=== PATIENT | male | born 1955 | race Caucasian/White ===

== ENCOUNTER 2016-10-05 12:56 | Emergency (ER) | payer OTHER ==
[~2016-10-05] VITALS: Ht 175.3 cm; Wt 98.9 kg
[2016-10-05] MEDS ORDERED: ONDANSETRON PF 4 MG/2 ML VIAL. IV ONE (13:30)
[2016-10-05] MEDS: HYDROmorphone 2 MG/ML VIAL IV PRN ×2 (14:06→15:50)
[2016-10-05 14:18] LABS: BASO # 0.1 x10^3/uL (0.0-0.2); BASO % 1 % (0-3); EOS % 2 % (0-3); HEMATOCRIT 40.9 % (39.0-53.0); HEMOGLOBIN 13.5 g/dL (13.0-17.5); LYMPH # 2.6 x10^3/uL (1.0-4.8); LYMPH % 25 % (24-48); MEAN CORPUSCULAR HEMOGLOBIN 30 pg (25-35); MEAN CORPUSCULAR HGB CONC 33 g/dL (31-37); MEAN CORPUSCULAR VOLUME 91 fL (79-100); MONO % 6 % (0-9); NEUT % 65 % (31-73); PLATELET COUNT 268 x10^3/uL (140-400); RED BLOOD COUNT 4.52 x10^6/uL (4.30-5.70); WHITE BLOOD COUNT 10.5 x10^3/uL (4.0-11.0)
[2016-10-05 14:28] LABS: CALCIUM 9.1 mg/dL (8.5-10.1); CREATININE 1.5 mg/dL (0.7-1.3); GFR 47.6; POTASSIUM 4.7 mmol/L (3.5-5.1)
--- NOTE | 2016-10-05 14:28 | RAD ---
Indication chest pain. A single view of the chest was obtained. No prior imaging of the chest is available. Heart size is at the upper limits of normal. There is no congestive heart failure. There is no focal infiltrate significant pleural fluid collection or pneumothorax. Postoperative changes are noted in the cervical spine. IMPRESSION: No acute finding apparent in the chest
--- NOTE | 2016-10-05 14:31 | RAD ---
Indication right ankle pain. AP oblique and lateral views of the right ankle were obtained. A plate and screws are noted associated with the lateral malleolus. There is a sclerotic focus involving the distal tibia at the articular surface the etiology is unclear. This is probably on a degenerative basis however. IMPRESSION: No acute finding. Probable early degenerative change involving the distal tibia
[2016-10-05 14:37] LABS: ALBUMIN 3.4 g/dL (3.4-5.0); MAGNESIUM 2.3 mg/dL (1.8-2.4); TOTAL BILIRUBIN 0.3 mg/dL (0.2-1.0); TOTAL PROTEIN 6.8 g/dL (6.4-8.2)
--- NOTE | 2016-10-05 14:59 | EKG ---
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
--- NOTE | 2016-10-05 15:04 | RAD ---
Indication pain associated with a fall. AP oblique and lateral views of the right knee were obtained. No acute bony finding is seen. Significant degenerative changes are not apparent on plain films. No significant joint fluid is suggested. IMPRESSION: Normal plain films of the right knee
[2016-10-05 15:14] VITALS: BP 85/64
[2016-10-05] MEDS ORDERED: HYDR-2758 PO (15:32)
--- NOTE | 2016-10-05 15:33 | PHYS DOC ---
Past Medical History Past Medical History: Anxiety, Diabetes-Type II, GERD, High Cholesterol, Hypertension Additional Past Medical Histor: Chronic neck pain, Neuropathy, Essential Tremors, Insomnia Past Surgical History: Other Additional Past Surgical Histo: Neck Fusion, Ankle Surgery Alcohol Use: Occasionally Drug Use: Marijuana Adult General Chief Complaint Chief Complaint: SYNCOPE HPI HPI 61-year-old male presenting to the emergency department after sustaining injury to his right ankle after passing out approximately 2 hours ago. 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 He reports his pain is in his right ankle sharp moderate worse with walking and without alleviating factors. He notes associated swelling. He denies any palpitations or preceding symptoms. Review of systems is negative for chest pain shortness of breath headache fevers chills cough. He denies palpitations. All other review of systems is negative unless otherwise noted in history of present illness. ED course: 61-year-old gentleman presenting to the emergency department today with syncope and right ankle injury. He reports his syncope is currently being worked up on an outpatient basis by his primary care physician and reports "mainly being seen today for his right ankle pain." He is concerned he has a fracture. X-ray of the right ankle was obtained which was unremarkable read by radiology. Right knee x-ray obtained as well which was unremarkable.EKG shows sinus rhythm with regular rate. Normal intervals. Normal axis. ST segments are congruent. Not suggestive of ACS. Reviewed by myself. Blood work taken and reviewed by myself. Creatinine and BUN mildly elevated. Patient is on hydrochlorothiazide. Patient also was found to be mildly orthostatic in the emergency department. I recommended he stop taking his hydrochlorothiazide and follow up with his doctor in the next few days. Also I recommended he drink a lot of water to rehydrate himself. His who is here with him today reports that he had a recent creatinine was mildly elevated as well. The patient was then discharged home in stable condition to follow up with their primary care physician over the next 2-3 days. They were to return if their symptoms worsened or if they were concerned for any reason. [id number] discharge instructions and return precautions were given. Patient's questions were answered to their satisfaction. Patient is comfortable plan. Review of Systems Review of Systems SEE ABOVE. Current Medications Current Medications Current Medications Medications (Trade) Dose Ordered Sig/Adilson Start Time Stop Time Status Last Admin Dose Admin Hydromorphone HCl (Dilaudid) 0.5 mg PRN Q30MIN PRN 10/05/16 13:30 10/05/16 16:05 DC 10/05/16 15:50 0.5 MG Ondansetron HCl (Zofran) 4 mg 1X ONCE 10/05/16 13:30 10/05/16 13:32 DC 10/05/16 14:03 4 MG Allergies Allergies Allergies Coded Allergies Type Severity Reaction Last Updated Verified niacin Allergy Intermediate 12/08/14 No nicotine Allergy Intermediate 12/08/14 No pravastatin Allergy Intermediate 12/08/14 No varenicline Allergy Intermediate 12/08/14 No hydrocodone Adverse Reaction Intermediate NAUSEA 12/08/14 No Physical Exam Physical Exam SEE ABOVE Constitutional: Well developed, well nourished, no acute distress, non-toxic appearance. [] HENT: Normocephalic, atraumatic, bilateral external ears normal, oropharynx moist, no oral exudates, nose normal. [] Eyes: PERRLA, EOMI, conjunctiva normal, no discharge. [] Neck: Normal range of motion, no tenderness, supple, no stridor. [] Cardiovascular:Heart rate regular rhythm, no murmur [] Lungs & Thorax: Bilateral breath sounds clear to auscultation [] Abdomen: Bowel sounds normal, soft, no tenderness, no masses, no pulsatile masses. [] Skin: Warm, dry, no erythema, no rash. [] Back: No tenderness, no CVA tenderness. [] Extremities: The patient's right ankle is warm and well perfused with a palpable pulse. No erythema. No lacerations abrasions. Mild swelling present. Tenderness to palpation along the right lateral malleolus. Sensation intact. 2 second cap refill distally. Neurologic: Alert and oriented X 3, normal motor function, normal sensory function, no focal deficits noted. [] Psychologic: Affect normal, judgement normal, mood normal. [] Current Patient Data Vital Signs Vital Signs Date Time Temp Pulse Resp B/P (MAP) Pulse Ox O2 Delivery O2 Flow Rate FiO2 10/05/16 15:50 Room Air 10/05/16 15:14 92 22 85/64 (71) 92 10/05/16 13:25 98.4 98.4 Lab Values Laboratory Tests Test 10/05/16 14:00 White Blood Count 10.5 x10^3/uL (4.0-11.0) Red Blood Count 4.52 x10^6/uL (4.30-5.70) Hemoglobin 13.5 g/dL (13.0-17.5) Hematocrit 40.9 % (39.0-53.0) Mean Corpuscular Volume 91 fL (79-100) Mean Corpuscular Hemoglobin 30 pg (25-35) Mean Corpuscular Hemoglobin Concent 33 g/dL (31-37) Red Cell Distribution Width 13.0 % (11.5-14.5) Platelet Count 268 x10^3/uL (140-400) Neutrophils (%) (Auto) 65 % (31-73) Lymphocytes (%) (Auto) 25 % (24-48) Monocytes (%) (Auto) 6 % (0-9) Eosinophils (%) (Auto) 2 % (0-3) Basophils (%) (Auto) 1 % (0-3) Neutrophils # (Auto) 6.9 x10^3uL (1.8-7.7) Lymphocytes # (Auto) 2.6 x10^3/uL (1.0-4.8) Monocytes # (Auto) 0.7 x10^3/uL (0.0-1.1) Eosinophils # (Auto) 0.2 x10^3/uL (0.0-0.7) Basophils # (Auto) 0.1 x10^3/uL (0.0-0.2) Sodium Level 136 mmol/L (136-145) Potassium Level 4.7 mmol/L (3.5-5.1) Chloride Level 99 mmol/L (98-107) Carbon Dioxide Level 29 mmol/L (21-32) Anion Gap 8 (6-14) Blood Urea Nitrogen 28 mg/dL (8-26) H Creatinine 1.5 mg/dL (0.7-1.3) H Estimated GFR (Cockcroft-Gault) 47.6 BUN/Creatinine Ratio 19 (6-20) Glucose Level 118 mg/dL (70-99) H Calcium Level 9.1 mg/dL (8.5-10.1) Magnesium Level 2.3 mg/dL (1.8-2.4) Total Bilirubin 0.3 mg/dL (0.2-1.0) Aspartate Amino Transferase (AST) 13 U/L (15-37) L Alanine Aminotransferase (ALT) 19 U/L (16-63) Alkaline Phosphatase 71 U/L (46-116) Troponin I Quantitative < 0.017 ng/mL (0.000-0.055) Total Protein 6.8 g/dL (6.4-8.2) Albumin 3.4 g/dL (3.4-5.0) Albumin/Globulin Ratio 1.0 (1.0-1.7) Laboratory Tests 10/05/16 14:00 Laboratory Tests 10/05/16 14:00 EKG EKG [] Radiology/Procedures Radiology/Procedures [] Course & Med Decision Making Course & Med Decision Making Pertinent Labs and Imaging studies reviewed. (See chart for details) [] Dragon Disclaimer Dragon Disclaimer This electronic medical record was generated, in whole or in part, using a voice recognition dictation system. Departure Departure Impression: Primary Impression: Right ankle pain Additional Impression: Syncope Disposition: 01 HOME, SELF-CARE Condition: STABLE Referrals: CELSO LEVIN (PCP) Patient Instructions: Ankle Pain Additional Instructions: Thank you for allowing us to participate in your care today. Followup with your primary care physician in 3 days if your symptoms do not improve. Call your Primary Doctor tomorrow and inform them of your visit today. If you do not have a primary care provider you can ask for a list of our primary care providers. Return to the emergency department you have any new or concerning findings. This should be evaluated by the primary care physician and any necessary consulting services for continued management within a few days after discharge. Return to emergency room if you have any new or concerning symptoms including but not limited to fever, chills, nausea, vomiting, intractable pain, any new rashes, chest pain, shortness of air, uncontrolled bleeding, difficulty breathing, and/or vision loss. You may have been prescribed medication that can change in your level of thinking and ability to operate machinery. These medications include hydrocodone and Ativan. Also, Benadryl has been known to do this as well. Be sure to check with your pharmacist and ask if the medications you've prescribed can affect your level of consciousness. I recommend not operating heavy machinery or driving while on medication such as these. Scripts Morphine Sulfate (MORPHINE SULFATE) 15 Mg Tablet 1 TAB PO PRN Q6-8HRS Y for SEVERE PAIN, #8 TAB Prov: KASANDRA BISHOP MD 10/05/16 Problem Qualifiers KASANDRA BISHOP MD Oct 05, 2016 15:32
[2016-10-05] MEDS ORDERED: MORP15TA PO (15:56)
== END 2016-10-05 15:58 | disposition home or self-care (01) ==
LOC: ER 12:56
DX: M25.571 Pain in right ankle and joints of right foot (principal); R55 Syncope and collapse; E11.9 Type 2 diabetes mellitus without complications; K21.9 Gastro-esophageal reflux disease without esophagitis; I10 Essential (primary) hypertension; E78.00 Pure hypercholesterolemia, unspecified; M54.2 Cervicalgia; G89.29 Other chronic pain; Z88.8 Allergy status to other drugs, medicaments and biological substances; Z88.6 Allergy status to analgesic agent; X58.XXXA Exposure to other specified factors, initial encounter; Y93.89 Activity, other specified; Y92.89 Other specified places as the place of occurrence of the external cause; Y99.8 Other external cause status
CPT/HCPCS: 36415; 71010; 73562; 73610; 80053; 83735; 84484; 85027; 93005; 96374; 96375; 96376; 99285; J1170; J2405

== ENCOUNTER → 2016-10-09 | Outpatient (CLI) | payer OTHER ==
[2016-10-05 15:14] VITALS: BP 85/64
[~2016-10-09] MED LIST: HYDR-2758 PO; MORP15TA PO
--- NOTE | 2016-10-09 15:50 | RAD ---
EXAM: PET/CT SKULL BASE TO MID THIGH. HISTORY: 61-year-old with right lung carcinoma. Not currently receiving chemoradiation. COMPARISON: None. TECHNIQUE: CT was performed from the skull base through the mid thighs for the purposes of attenuation correction. 15.2 mCi F-18 fluorodeoxyglucose (FDG) was administered intravenously. After an uptake period, positron emission tomography was performed from the skull base through the mid thighs. The PET and CT data were fused and interpreted in combination a dedicated workstation. Blood glucose level was 162 mg/dL at the time of FDG administration. Findings: Mediastinal blood pool: 3.7 SUV. Head and neck: No suspicious hypermetabolic activity in this region. Chest: There is a medial right upper lobe nodule measuring 2.2 x 2.1 cm which demonstrates a maximum SUV of 2.7. No hypermetabolic lymphadenopathy. Abdomen and pelvis: There is physiologic activity in both kidneys with excretion into the renal collecting system. There is patchy scattered FDG uptake throughout the small large bowel which is likely physiologic. No suspicious focal FDG uptake or hypermetabolic lymphadenopathy in this region. Musculoskeletal: Prior ACDF C4-C7. No no suspicious focal uptake. Uncorrected PET images: No additional finding. Low-dose noncontrast CT: Coronary artery calcifications. Mild dilatation of the ascending thoracic aorta measuring 4.2 cm. There are scattered bilateral nonobstructive renal calculi, largest in the superior pole the left kidney measuring 8 mm. There is a 1.6 cm peripherally calcified nodule in the dependent peritoneum which likely represents fat necrosis from prior epiploic appendagitis. Abdominal aorta is normal in caliber with moderate aortoiliac calcified atheromatous disease. Impression: 1. Right upper lobe pulmonary nodule, measuring up to 2.2 cm, with minimal FDG uptake which is below the mediastinal blood pool. Findings may represent benign noncalcified nodule, FDG poor low-grade pulmonary malignancy or metastatic disease from an unknown primary. 2. Otherwise, no hypermetabolic mass or lymphadenopathy in the neck, chest, abdomen or pelvis. 3. Coronary artery calcifications and mild dilatation of the ascending thoracic aorta.
== END | disposition home or self-care (01) ==
LOC: PETSC 08:12
PROVIDERS: ATTEND Internal Medicine Pulmonary Disease
DX: R91.8 Other nonspecific abnormal finding of lung field (principal); I25.10 Atherosclerotic heart disease of native coronary artery without angina pectoris; R91.1 Solitary pulmonary nodule; I71.2 Thoracic aortic aneurysm, without rupture
CPT/HCPCS: 78815; A9552

== ENCOUNTER → 2016-10-16 | Outpatient (CLI) | payer OTHER ==
[2016-10-05 15:14] VITALS: BP 85/64
--- NOTE | 2016-10-16 12:01 | KCIC ---
PQRS Compliance Statement: One or more of the following individualized dose reduction techniques were utilized for this examination: 1. Automated exposure control 2. Adjustment of the mA and/or kV according to patient size 3. Use of iterative reconstruction technique CT LOWER EXTREMITY WO RIGHT Clinical Indication: Closed fracture posterior right malleolus. Previous fracture with surgery 9 years ago. Comparison: Right ankle, 3 views, prior day, [facility]. TECHNIQUE: Helical CT imaging of the right ankle is performed without IV contrast, multiplanar reformats. Findings: There is a lateral sideplate secured with cortical screws of the distal fibula. There is an orthogonal oblique cortical screw of the distal fibula. No hardware fracture or evidence of loosening is identified. There is acute traumatic nondisplaced fracture of the posterior malleolus. There is acute traumatic nondisplaced fracture at the anterior tip of the lateral malleolus, for example axial image 50 and sagittal image 32. The fracture line is separate from the hardware. The talus is intact. The medial malleolus is intact. No obvious soft tissue abnormality. IMPRESSION: 1. Acute traumatic nondisplaced fracture of the posterior malleolus. 2. Acute traumatic nondisplaced fracture of the anterior tip of the lateral malleolus. Electronically signed by: Darci Angeles MD (10/16/2016 11:57 AM) [id number]
== END | disposition home or self-care (01) ==
LOC: KCIC CT 10:43
PROVIDERS: ATTEND Nurse Practitioner Gerontology
DX: S82.64XA Nondisplaced fracture of lateral malleolus of right fibula, initial encounter for closed fracture (principal); X58.XXXA Exposure to other specified factors, initial encounter; Y93.89 Activity, other specified; Y92.89 Other specified places as the place of occurrence of the external cause; Y99.8 Other external cause status
CPT/HCPCS: 73700

== ENCOUNTER → 2016-12-11 | Outpatient (CLI) | payer OTHER ==
[~2016-12-11] MED LIST changes: +IOHEXOL 300 MG/ML 75 ML VIAL IV ONE
--- NOTE | 2016-12-11 13:49 | RAD ---
EXAM: CT OF THE CHEST WITH INTRAVENOUS CONTRAST. HISTORY: Lymphadenopathy. TECHNIQUE: Computed tomography of the chest was performed after the intravenous administration of 75 mL Omnipaque 300. COMPARISON: 10/09/2016. FINDINGS: Images of the upper abdomen reveal no acute abnormality. Bone windows reveal no suspicious lesions. There is a 2.3 cm round mass along the right paratracheal territory. This appears increased from 2.1 cm on 10/09/2016. Calcified mediastinal lymph nodes are likely secondary to old granulomatous disease. There is no pleural or pericardial effusion. The heart is not enlarged. The ascending aorta is mildly ectatic at 4.4 cm. There are atherosclerotic calcifications of the coronary arteries. Scattered tiny nodules on the left are unchanged and appear postinflammatory at <4 mm. A groundglass nodule in the right upper lobe measures 1 cm and is less prominent than on the prior study. IMPRESSION: 1. A 2.3 cm the right peritracheal lymph node has increased in size slightly since 10/09/2016. This is indeterminate and malignancy is not excluded. Tissue sampling could provide definitive diagnosis if not all and known. 2. Mild ascending aortic ectasia at 4.4 cm. *One or more of the following individualized dose reduction techniques were utilized for this examination: 1. Automated exposure control. 2. Adjustment of the mA and/or kV according to patient size. 3. Use of iterative reconstruction technique.
== END | disposition home or self-care (01) ==
LOC: CT 14:34
PROVIDERS: ATTEND Internal Medicine Pulmonary Disease
DX: I77.819 Aortic ectasia, unspecified site (principal); I10 Essential (primary) hypertension; E11.9 Type 2 diabetes mellitus without complications; R59.1 Generalized enlarged lymph nodes
CPT/HCPCS: 36415; 71260; 82565; 84520; Q9967

== ENCOUNTER 2016-12-31 10:05 | Day surgery (SDC) | payer OTHER ==
[~2016-12-31] VITALS: Ht 175.3 cm; Wt 104.3 kg
[~2016-12-31 10:05] MED LIST changes: +ALBU2.5V5 NEB; +ASPI-482 PO; +BUPIVACAINE MPF 0.5% 30 ML VIAL. ONE; +BUPR150T11 PO; +CARV25TA2 PO; +CHOL100013 PO; +DEXAMETHASONE SOD PHOS 20 MG/5 ML VIAL. ONE; +DULO60CA6 PO; +GLIP10TA13 PO; +GLIP5TAB10 PO; +HYDR50TA6 PO; -IOHEXOL 300 MG/ML 75 ML VIAL IV ONE; +IV RINGERS,LACTATED 1000ML 1,000 ML IV SCH; +LIDOCAINE 1% PF 2 ML VIAL. ID PRN; +LIDOCAINE 1% PF 30 ML VIAL. ONE; +LIDOCAINE 2% PF Vial for OR 5 ML VIAL. ONE; +LOVA20TA2 PO; +METF100010 PO; +MORPHINE SULFATE 2 MG/ML DISP.SYRIN. IV PRN; +OMEG1CAP6 PO; +ONDANSETRON PF 4 MG/2 ML VIAL. IV PRN; +ONDANSETRON PF 4 MG/2 ML VIAL. ONE; +PREG75CA PO; +PROCHLORPERAZINE 10 MG/2 ML VIAL. IV PRN; +PROPOFOL 20 ML IV ONE; +RANI150T2 PO; +ROCURONIUM 100 MG/10 ML VIAL. ONE; +SEVOFLURANE 31 TO 60 MINUTES. IH ONE; +SILD100T PO; +TESTOSTERONE IM; +TIOT18CA IH; +TRAM50TA PO; +TRAZ100T12 PO; +VENTOLIN HFA18 GM INH; +fentaNYL PF VIAL 100 MCG/2 ML VIAL IV PRN; +fentaNYL PF VIAL 100 MCG/2 ML VIAL ONE
--- NOTE | 2016-12-31 10:48 | EKG ---
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
[2016-12-31 11:10] LABS: BASO # 0.1 x10^3/uL (0.0-0.2); BASO % 1 % (0-3); EOS % 4 % (0-3); HEMATOCRIT 41.8 % (39.0-53.0); HEMOGLOBIN 13.8 g/dL (13.0-17.5); LYMPH # 2.5 x10^3/uL (1.0-4.8); LYMPH % 25 % (24-48); MEAN CORPUSCULAR HEMOGLOBIN 30 pg (25-35); MEAN CORPUSCULAR HGB CONC 33 g/dL (31-37); MEAN CORPUSCULAR VOLUME 91 fL (79-100); MONO % 8 % (0-9); NEUT % 62 % (31-73); PLATELET COUNT 190 x10^3/uL (140-400); RED BLOOD COUNT 4.62 x10^6/uL (4.30-5.70); RED CELL DISTRIBUTION WIDTH 13.8 % (11.5-14.5); WHITE BLOOD COUNT 10.1 x10^3/uL (4.0-11.0)
[2016-12-31 11:19] LABS: CALCIUM 8.4 mg/dL (8.5-10.1); CREATININE 1.1 mg/dL (0.7-1.3); GFR 68.1; POTASSIUM 4.2 mmol/L (3.5-5.1)
[2016-12-31] MEDS ORDERED: LIDOCAINE 1% 20 ML VIAL. ONE (11:24)
[2016-12-31] MEDS ORDERED: BUPIVACAINE MPF 0.5% 30 ML VIAL. ONE (11:24)
[2016-12-31] MEDS ORDERED: MIDAZOLAM HCL/PF 2 MG/2 ML VIAL. ONE ×2 (11:32→12:49)
[2016-12-31] MEDS ORDERED: fentaNYL PF VIAL 100 MCG/2 ML VIAL ONE ×2 (11:42→16:24)
[2016-12-31] MEDS ORDERED: NEOSTIGMINE 10 MG/10 ML VIAL. ONE (13:57)
[2016-12-31] MEDS ORDERED: GLYCOPYRROLATE 1 MG/5 ML VIAL. ONE (13:58)
[2016-12-31] MEDS ORDERED: PHENYLEPHRINE in 0.9% NACL PF 1 MG/10 ML DISP.SYRIN. IV ONE (14:02)
[2016-12-31] MEDS ORDERED: LIDOCAINE 2% PF Vial for OR 5 ML VIAL. ONE (14:13)
--- NOTE | 2016-12-31 16:07 | RAD ---
EXAM: Chest one view. HISTORY: Status post mediastinoscopy. COMPARISON: 10/05/2016. FINDINGS: A frontal view of the chest is obtained. There is no pneumothorax. There is atelectasis in the left base. A small left pleural effusion cannot be excluded. The heart is not enlarged. There are atherosclerotic calcifications of the aorta. Cervical instrumented anterior cervical discectomy and fusion changes are noted. IMPRESSION: 1. Left basilar atelectasis. No pneumothorax.
[2016-12-31] MEDS ORDERED: OXYC5TAB95 PO ×2 (16:23→17:01)
[2016-12-31] MEDS: fentaNYL PF VIAL 100 MCG/2 ML VIAL IV PRN ×2 (16:30→16:40)
[2016-12-31] MEDS ORDERED: oxyCODONE/APAP 5/325 1 TAB TABLET PO ONE (16:45)
--- NOTE | 2016-12-31 17:14 | PDOC ---
BRIEF OPERATIVE NOTE Date: Dec 31, 2016 Pre-Op Diagnosis Mediastinal lymphadenopathy COPD History of agent orange exposure Polyarthritis Tobaccoism Post-Op Diagnosis Mediastinal lymphadenopathy COPD History of agent orange exposure Polyarthritis Tobaccoism Procedure Performed Flexible bronchoscopy Mediastinoscopy and lymph node biopsy Surgeon Katelyn Bynum MD Accounts Payable Assistant QUANG Garcia Anesthesiologist Tressa Anesthesia Type: General Blood Loss 50mls IV Fluid N/A Urine Output N/A Specimens Obtained Right paratracheal lymph node Findings Anthracotic and enlarged R4 lymph node Frozen section was negative for malignancy. Complications None KATELYN BYNUM MD Dec 31, 2016 17:14
[2016-12-31] MEDS ORDERED: HYDROmorphone 2 MG/ML VIAL ONE (17:17)
[2016-12-31] MEDS: HYDROmorphone 2 MG/ML VIAL IV PRN ×4 (17:20→17:59)
--- NOTE | 2016-12-31 17:25 | PDOC4 ---
Operative Note Operative Note Date Dec 31, 2016 Preoperative diagnosis Mediastinal lymphadenopathy COPD History of agent orange exposure Polyarthritis Tobaccoism Postoperative diagnosis Mediastinal lymphadenopathy COPD History of agent orange exposure Polyarthritis Tobaccoism Procedure Flexible bronchoscopy Mediastinoscopy and lymph node biopsy Surgeon Paty Bynum MD Motion Picture Photographer QUANG Garcia Anesthesiologist Tressa Anesthesia Type General Blood loss 50mls IV fluids N/A Urine output N/A Specimens obtained Right paratracheal lymph node Findings Anthracotic and enlarged R4 lymph node Frozen section showed a reactive node, negative for malignancy. 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 He underwent a CT of the chest which demonstrated an enlarged right paratracheal lymph node. There were no other masses or nodules in the chest or abdomen. He subsequently had a PET/CT which showed order line avidity of the right paratracheal lymph node and no activity elsewhere. He'll repeat CT last month which showed slight enlargement of the lymph node. As a result he was referred to me for mediastinoscopy and biopsy. The risks, benefits and limitations of procedure explained to the patient who agreed to proceed. Informed consent was obtained. Operation The patient was seen in the preoperative area where his ID was confirmed using 2 unique identifies. He was then transferred to the operating room and placed supine on the operating table. Anesthesia was induced and the airway was secured with an ET tube. Preoperative antibiotic prophylaxis was administered. A timeout was then performed. We initially performed a flexible bronchoscopy via the ET tube. I initially inspected the distal trachea, radha and right and left mainstem bronchi which were essentially normal. I then proceeded with examining the right upper, middle, lower lobe bronchi and segmental bronchi which were without abnormalities. I then evaluated the left upper lobe, lingular and lower lobe bronchi in addition to the segmental bronchi which were also normal. The bronchoscope was removed and the anterior neck and chest were prepped and draped in the usual sterile surgical fashion. A 2 cm incision, one fingerbreadth above the sternal notch, in the skin crease, was made. The incision was deepened through the subcutaneous tissues, platysma and down to the strap muscles which were bluntly divided at the median raphe. This exposed the trachea. Two anterior jugular veins were ligated with clips, as they hindered exposure. The pretracheal fascia was incised and the pretracheal space was initially created with careful digital blunt dissection. The video mediastinoscope was then inserted and advanced along the trachea down to the subcarinal space. Attention was then turned to the right paratracheal space which was carefully dissected. A large anthracotic lymph node was identified. The majority of this lymph node was excised using biopsy forceps. The lymph node was sent for frozen section which showed a reactive lymph node and no evidence of malignancy. Hemostasis was achieved with cautery. The anterior mediastinal was then packed with gauze which confirmed that hemostasis was obtained. One final inspection with the mediastinoscope was performed and no hemorrhage was identified. The strap muscles were then reapproximated with 3-0 Vicryl as were the subcutaneous tissues. The epidermis was closed with 4-0 Monocryl. Dermabond was applied. At the end of procedure the patient, sponge and needle counts were correct. Anesthesia was reversed, the patient was extubated and transferred to the PACU in stable condition having tolerated the procedure well. PATY BYNUM MD Dec 31, 2016 17:25
[2016-12-31 18:25] VITALS: BP 170/95
--- NOTE | 2017-01-02 16:57 | PATHOLOGY ---
PATHOLOGY REPORT * * * * * * * * FINAL DIAGNOSIS: A. Lymph node, right paratracheal lymph node biopsy: - Reactive changes with anthracosis. B. Segments of lymph node, right paratracheal lymph node biopsies: - Reactive changes with anthracosis. (JPM:damian; 01/02/2017) COMMENT: Sections of the right paratracheal lymph node biopsies appear similar and reveal segments of lymph node with focally attached perinodal fibroadipose tissue. The lymph nodes show reactive changes comprised of reactive lymphoid follicles and collections of histiocytes containing anthracotic pigment. There are no granulomas. There is no evidence of metastatic carcinoma. (JPM:damian; 01/02/2017) REPORT ELECTRONICALLY SIGNED BY: Naldo Wang M.D. DATE/TIME: 01/02/2017 16:56 * * * * * * * * GROSS PATHOLOGY: A. The specimen is received fresh for intraoperative consultation and is designated "right paratracheal lymph node." This consists of a segment of red and dark black anthracotic tissue measuring up to 0.6 cm in greatest dimension. This is submitted for frozen section as FSA1. The tissue remaining from frozen section is submitted for permanent sections as A1. (JPM:mgr; 12/31/2016) B. The specimen is received in formalin and is designated "right paratracheal lymph node". This consists of multiple irregular segments of red and dark black anthracotic tissue, ranging from 0.2 up to 1.0 cm in greatest dimension. This is submitted for microscopy as B1 and B2. (JPM:damian; 01/02/2017) FROZEN SECTION DIAGNOSIS: (Jose Raul Wang M.D.) Right paratracheal lymph node biopsy: - Reactive changes and anthracosis-negative for tumor. The results are reported to Dr. Bynum in the surgery area. (JPM:mgr; 12/31/2016) Testing performed by [facility] at [address] [address] INITIAL CPT CODE(S): A; 80673, 88889 B; 33812, 07290 Professional services performed by [facility] at [address] [address] Technical services performed by [facility] at [address] [place] [address], [address], [place] [address]. SPECIMEN(S) RECEIVED: A.Right paratracheal lymph node B.Right paratracheal lymph node CLINICAL HISTORY: Pulmonary nodule PATIENT: DALJIT GAVIRIA /AGE: 7 1955 (Age: 61) PATIENT #: [id number] ALT CASE #: SPECIMEN COLLECTION DATE: 12/31/2016 SPECIMEN RECEIVED DATE: 12/31/2016 [facility] - [id number] [place] [address] - PHONE: [phone] * * * END OF REPORT * * *
== END 2016-12-31 18:36 | disposition home or self-care (01) ==
LOC: SURG 10:05
PROVIDERS: ATTEND Thoracic Surgery (Cardiothoracic Vascular Surgery)
DX: J60 Coalworker's pneumoconiosis (principal); E78.00 Pure hypercholesterolemia, unspecified; I10 Essential (primary) hypertension; J44.9 Chronic obstructive pulmonary disease, unspecified; E11.9 Type 2 diabetes mellitus without complications; F17.200 Nicotine dependence, unspecified, uncomplicated; Z86.39 Personal history of other endocrine, nutritional and metabolic disease; Z86.69 Personal history of other diseases of the nervous system and sense organs; Z87.39 Personal history of other diseases of the musculoskeletal system and connective tissue; Z72.89 Other problems related to lifestyle; Z88.8 Allergy status to other drugs, medicaments and biological substances; Z79.01 Long term (current) use of anticoagulants
CPT/HCPCS: 31622; 36415; 39402; 71010; 80048; 82962; 85025; 85730; 86850; 86900; 86901; 88305; 88331; 93005; J0690; J1100; J1170; J2250; J2370; J2405; J2704; J2710; J3010; J3490; J2001

== ENCOUNTER → 2018-07-14 | Day surgery (SDC) | payer OTHER ==
[~2018-07-14] MED LIST changes: -BUPIVACAINE MPF 0.5% 30 ML VIAL. ONE; +BUSP15TA PO; +CARV25TA PO; +CYCL10TA2 PO; -DEXAMETHASONE SOD PHOS 20 MG/5 ML VIAL. ONE; +DOXA2TAB2 PO; -HYDR-2758 PO; +HYDR-2761 PO; -LIDOCAINE 1% PF 30 ML VIAL. ONE; -LIDOCAINE 2% PF Vial for OR 5 ML VIAL. ONE; +LISI-130 PO; +MIDAZOLAM HCL/PF 2 MG/2 ML VIAL. IV PRN; -MORPHINE SULFATE 2 MG/ML DISP.SYRIN. IV PRN; -ONDANSETRON PF 4 MG/2 ML VIAL. IV PRN; -ONDANSETRON PF 4 MG/2 ML VIAL. ONE; +OXYC5TAB4 PO; -PROCHLORPERAZINE 10 MG/2 ML VIAL. IV PRN; -PROPOFOL 20 ML IV ONE; +PROPOFOL 40 ML IV ONE; -ROCURONIUM 100 MG/10 ML VIAL. ONE; -SEVOFLURANE 31 TO 60 MINUTES. IH ONE; +TRAZ-86 PO; -TRAZ100T12 PO; -fentaNYL PF VIAL 100 MCG/2 ML VIAL ONE
[2018-07-14 09:36] VITALS: BP 141/70
--- NOTE | 2018-07-14 19:34 | CONS ---
DATE OF CONSULTATION: 07/14/2018 REFERRING PHYSICIAN: Dr. John Weeks. REASON FOR CONSULTATION: History of diverticulitis and abnormal CT scan. HISTORY OF PRESENT ILLNESS: The patient is a 62-year-old male whose past medical history is significant for gastroesophageal reflux disease, diabetes, hypertension, COPD. He is seen for interval colonoscopy. He had been treated for diverticulitis in the hospital in April with a short segment of wall thickening on CT scan surrounding inflammation in the sigmoid colon. Last colonoscopy was approximately five years ago, which was unrevealing except for polyps and a few diverticulosis. No change in bowel habits since then, weight and appetite are stable. He is otherwise without additional complaints. PAST MEDICAL HISTORY: Diabetes, hypertension, hyperlipidemia, COPD. ALLERGIES: GABAPENTIN, HYDROCODONE, NIACIN, NICOTINE, PRAVASTATIN AND LORATADINE. MEDICATIONS: Include albuterol, aspirin, bupropion, carvedilol, vitamin D, cyclobenzaprine, doxazosin, Cymbalta, glipizide, lovastatin, metformin, omega 3, Lyrica, ranitidine, Spiriva, tramadol and trazodone. FAMILY HISTORY: Not pertinent. SOCIAL HISTORY: Less than a pack a day of vapor cigarettes, no alcohol. REVIEW OF SYSTEMS: Per records. PHYSICAL EXAMINATION: GENERAL: Reveals a well-nourished, well-developed, male who is alert, cooperative in no acute distress. VITAL SIGNS: Temperature 97.8, pulse is 94, respirations 20. HEENT: Normocephalic and atraumatic head. Pupils and extraocular muscles are not tested. Sclerae anicteric. NECK: Supple. LUNGS: Clear. CARDIOVASCULAR: Reveals an S1, S2 without S3, S4 or appreciable murmur. ABDOMEN: Soft abdomen, normal bowel sounds, without appreciable hepatosplenomegaly. EXTREMITIES: Reveals no cyanosis, clubbing, edema. IMPRESSION AND PLAN: History of diverticulitis, abnormal CT scan and colonoscopy to assess for persistent stricture and/or neoplasia was recommended. Risks and benefits have been discussed with the patient previously. He is willing to proceed. AMI PETERSON MD DR: FLIP/smitha JOB#: [id number] / [id number]
--- NOTE | 2018-07-15 14:41 | PATHOLOGY ---
[facility] Accession Number: [id number] . 01 Material submitted: . PART A: splenic flexure - SPLENIC FLEXURE POLYP PART B: colon - ASCENDING COLON POLYP. Modifiers: ascending . 01 Clinical history: . Hx diverticulitis . 02 Diagnosis: A. Colon biopsy, splenic flexure polyp: - Tubular adenoma. . B. Colon biopsies, ascending colon polyp: - Tubular adenoma. . 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 02 Comment: There is no high-grade dysplasia or evidence of malignancy. (JPM:customer operations intern; 07/15/2018) . 02 Electronically signed: . Naldo Wang MD, Pathologist NPI- [id number] . 01 Gross description: . A. Received in formalin labeled "Ca, Pérez, splenic flexure polyp," is a single segment of giles soft tissue measuring 0.5 cm in maximum dimension. The specimen is entirely submitted in cassette A1. . B. Received in formalin labeled "Ca, Pérez, ascending colon polyp," is a 1.3 x 0.6 x 0.7 cm polypoid piece of giles soft tissue. The margin is inked and the tissue is sectioned perpendicular to the margin and submitted in its entirely in cassette B1 and B2. Additionally received in the same container is a single segment of giles soft tissue measuring 0.3 cm in maximum dimension. The specimen is submitted entirely in cassette B3. (TSD; 07/14/2018) TOB/TOB . 02 Pathologist provided ICD-10: D12.3, D12.2 . 02 CPT . 317961, 495246 Specimen Comment: A courtesy copy of this report has been sent to Specimen Comment: [phone], . Specimen Comment: Report sent to / DR LEVIN Performed at: [address], [place] [id number] MD Austin Lagunas MD Phone: [phone] Performed at: [facility] [address] [place], [place] [id number] MD Naldo Wang MD Phone: [phone]
== END | disposition home or self-care (01) ==
LOC: ENDOS 08:18
PROVIDERS: ATTEND Internal Medicine Gastroenterology
DX: D12.2 Benign neoplasm of ascending colon (principal); D12.3 Benign neoplasm of transverse colon; K57.30 Diverticulosis of large intestine without perforation or abscess without bleeding; K64.0 First degree hemorrhoids; I10 Essential (primary) hypertension; E11.9 Type 2 diabetes mellitus without complications; E78.5 Hyperlipidemia, unspecified; J44.9 Chronic obstructive pulmonary disease, unspecified; K21.9 Gastro-esophageal reflux disease without esophagitis; Z88.1 Allergy status to other antibiotic agents; Z88.6 Allergy status to analgesic agent; Z88.8 Allergy status to other drugs, medicaments and biological substances; Z79.84 Long term (current) use of oral hypoglycemic drugs; Z79.899 Other long term (current) drug therapy; Z79.82 Long term (current) use of aspirin; F17.210 Nicotine dependence, cigarettes, uncomplicated
CPT/HCPCS: 45385; 82962; 88305; J2704; 45380

== ENCOUNTER 2021-07-14 13:00 | Inpatient (IN) | payer OTHER ==
[~2021-07-14] VITALS: Ht 175.3 cm; Wt 102.3 kg
[~2021-07-14 13:00] MED LIST changes: +CYCL10TA19 PO; -CYCL10TA2 PO; -DULO60CA6 PO; +DULO60CA7 PO; -HYDR50TA6 PO; +HYDR50TA9 PO; -IV RINGERS,LACTATED 1000ML 1,000 ML IV SCH; -LIDOCAINE 1% PF 2 ML VIAL. ID PRN; -MIDAZOLAM HCL/PF 2 MG/2 ML VIAL. IV PRN; +PREG-9 PO; -PREG75CA PO; -PROPOFOL 40 ML IV ONE; +TRAZ-123 PO; -TRAZ-86 PO; -fentaNYL PF VIAL 100 MCG/2 ML VIAL IV PRN
--- NOTE | 2021-07-14 13:32 | PHYS DOC ---
Past Medical History Past Medical History: Anxiety, COPD, Depression, Diabetes-Type II, GERD, High Cholesterol, Hypertension Additional Past Medical Histor: Chronic neck pain, Neuropathy, Essential Tr emors, Insomnia, Past Surgical History: Other Additional Past Surgical Histo: Neck Fusion, Ankle Surgery, "spot on lung removed" Smoking Status: Current Every Day Smoker Alcohol Use: Rarely Drug Use: Marijuana General Adult EDM: Chief Complaint: ABDOMINAL PAIN HPI: HPI: Patient is a 65-year-old male who presents to the emergency department complaining of low center abdominal pain for the past 2 weeks. Patient reports is a constant 6 and radiates to an 8 intermittently. Patient reports intermittent nausea with one vomiting episode yesterday noticing green bile vomitus. Patient denies seeing blood in his vomitus. Patient denies nausea today at this time. Patient reports he had a hard stool yesterday, notes that he had a loose stool about an hour prior to arrival to the emergency department, denies seeing blood in his stool. Patient denies increased urinary frequency, urinary pressure, hematuria or other dysuria. Patient denies any recent fevers, cough, shortness of breath, chest or nasal congestion, denies chest pains, denies chest palpitations, denies back pain. Patient denies any aggravating or alleviating factors. Patient reports his pain is a stabbing burning sensation. Patient states symptoms are very similar to his diagnosis of diverticulitis in April 2018. Review of Systems: Review of Systems: 14 body systems of review of systems have been reviewed. See HPI for pertinent positives and negative responses, otherwise all other systems are negative, nonpertinent or noncontributory. Constitutional: Negative except as outlined in HPI above. Skin: Negative except as outlined in HPI above. Eyes: Negative except as outlined in HPI above. HENT: Negative except as outlined in HPI above. Respiratory: Negative except as outlined in HPI above. Cardiovascular: Negative except as outlined in HPI above. GI: Negative except as outlined in HPI above. : Negative except as outlined in HPI above. Musculoskeletal: Negative except as outlined in HPI above. Integument: Negative except as outlined in HPI above. Neurologic: Negative except as outlined in HPI above. Endocrine: Negative except as outlined in HPI above. Lymphatic: Negative except as outlined in HPI above. Psychiatric: Negative except as outlined in HPI above. Heart Score: C/O Chest Pain: No Risk Factors: Risk Factors: DM, Current or recent (<one month) smoker, HTN, HLP, family history of CAD, obesity. Risk Scores: Score 0 - 3: 2.5% MACE over next 6 weeks - Discharge Home Score 4 - 6: 20.3% MACE over next 6 weeks - Admit for Clinical Observation Score 7 - 10: 72.7% MACE over next 6 weeks - Early Invasive Strategies Allergies: Allergies: Allergies Coded Allergies Type Severity Reaction Last Updated Verified gabapentin Allergy Intermediate 07/14/18 Yes liraglutide Allergy Intermediate 04/29/18 Yes niacin Allergy Intermediate 07/14/18 No nicotine Allergy Intermediate SKIN IRRITATION 07/14/18 No pravastatin Allergy Intermediate 12/31/16 No varenicline Allergy Intermediate 12/31/16 No hydrocodone Adverse Reaction Intermediate NAUSEA 07/14/18 No Physical Exam: PE: Constitutional: Well developed, well nourished, no acute distress, non-toxic appearance. 65-year-old male in no apparent distress. HENT: Normocephalic, atraumatic. Eyes: Conjunctiva normal, no discharge. Neck: Normal range of motion, no stridor. Cardiovascular: No cyanosis appreciated, distal cap refill less than 2 seconds. Lungs & Thorax: Patient is in no respiratory distress, no audible adventitious lung sounds appreciated. Abdomen: Abdomen round, soft, bowel sounds normal all 4 quadrants, pain to palpation center low abdomen, no definitive McBurney's point tenderness, no rebound tenderness, no Baires sign, negative psoas sign. No abnormal skin discoloration of the abdomen. Skin: Warm, dry, no erythema, no rash. Back: No tenderness, no deformities. Extremities: No tenderness, no cyanosis, no clubbing, ROM intact, no edema. Neurologic: Alert and oriented X 3, normal motor function, normal sensory function, no focal deficits noted. Psychologic: Affect normal, judgement normal, mood normal. Current Patient Data: Labs: Laboratory Tests Test 07/14/21 13:18 07/14/21 13:30 07/14/21 13:46 Urine Collection Type Unknown Urine Color (Auto) Light yellow Urine Turbidity Clear Urine pH (Auto) 5.0 Urine Specific [place] 1.011 Urine Protein (Auto) Negative mg/dL Urine Glucose (Auto)(UA) >=1000 mg/dL Urine Ketones (Auto) Negative mg/dL Urine Blood (Auto) Negative Urine Nitrite Negative Urine Bilirubin (Auto) Negative Urine Urobilinogen (Auto) Normal mg/dL Urine Leukocyte Esterase (Auto) Negative Urine RBC 0 /HPF Urine WBC 0 /HPF Urine Bacteria 0 /HPF White Blood Count 11.9 x10^3/uL Red Blood Count 4.72 x10^6/uL Hemoglobin 14.1 g/dL Hematocrit 41.3 % Mean Corpuscular Volume 88 fL Mean Corpuscular Hemoglobin 30 pg Mean Corpuscular Hemoglobin Concent 34 g/dL Red Cell Distribution Width 13.5 % Platelet Count 293 x10^3/uL Neutrophils (%) (Auto) 74 % Lymphocytes (%) (Auto) 16 % Monocytes (%) (Auto) 7 % Eosinophils (%) (Auto) 2 % Basophils (%) (Auto) 1 % Neutrophils # (Auto) 8.7 x10^3/uL Lymphocytes # (Auto) 1.9 x10^3/uL Monocytes # (Auto) 0.8 x10^3/uL Eosinophils # (Auto) 0.3 x10^3/uL Basophils # (Auto) 0.1 x10^3/uL Sodium Level 134 mmol/L Potassium Level 4.8 mmol/L Chloride Level 97 mmol/L Carbon Dioxide Level 26 mmol/L Anion Gap 11 Blood Urea Nitrogen 28 mg/dL Creatinine 1.6 mg/dL Estimated GFR (Cockcroft-Gault) 43.6 BUN/Creatinine Ratio 18 Glucose Level 89 mg/dL Calcium Level 9.4 mg/dL Magnesium Level 2.4 mg/dL Total Bilirubin 0.3 mg/dL Aspartate Amino Transf (AST/SGOT) 15 U/L Alanine Aminotransferase (ALT/SGPT) 24 U/L Alkaline Phosphatase 82 U/L Total Protein 8.1 g/dL Albumin 3.6 g/dL Albumin/Globulin Ratio 0.8 Lipase 193 U/L Lactic Acid Level 1.4 mmol/L Current Medications Medications (Trade) Dose Ordered Sig/Adilson Route PRN Reason Start Time Stop Time Status Last Admin Dose Admin Morphine Sulfate (Morphine Sulfate) 4 mg 1X ONCE IVP 07/14/21 13:45 07/14/21 13:46 DC 07/14/21 13:50 Sodium Chloride 1,000 ml @ 1,000 mls/hr 1X ONCE IV 07/14/21 13:45 07/14/21 14:44 DC 07/14/21 13:50 Ondansetron HCl (Zofran) 4 mg 1X ONCE IVP 07/14/21 13:45 07/14/21 13:46 DC 07/14/21 13:50 Iohexol (Omnipaque 300 Mg/ml) 75 ml 1X ONCE IV 07/14/21 14:30 07/14/21 14:31 DC 07/14/21 14:44 Info (CONTRAST GIVEN -- Rx MONITORING) 1 each PRN DAILY PRN MC SEE COMMENTS 07/14/21 14:15 07/16/21 14:14 07/14/21 14:44 Morphine Sulfate (Morphine Sulfate) 4 mg 1X ONCE IVP 07/14/21 14:30 07/14/21 14:31 DC 07/14/21 14:25 Vital Signs: Vital Signs Date Time Temp Pulse Resp B/P (MAP) Pulse Ox O2 Delivery O2 Flow Rate FiO2 07/14/21 13:00 98.2 100 18 111/75 (87) 95 Room Air 98.2 EKG: EKG: EKG performed at 1558 by ED nursing staff shows a normal sinus rhythm without other ectopy, heart rate is 85 bpm, WI interval point 182, QTc interval 0.400, no acute STEMI, no ACS, no acute ischemia appreciated, EKG interpreted by ED attending physician Dr. Zambrano. Radiology/Procedures: Radiology/Procedures: REASON: Lower central abdominal pain, history of diverticulitis PROCEDURE: CT ABD PELV W/ IV CONTRST ONLY CT scan of the abdomen and pelvis with contrast 07/14/2021 CLINICAL HISTORY: Lower Central abdominal pain. History of diverticulitis. TECHNIQUE: After the intravenous administration of 60 cc of Omnipaque 300 only, contiguous, 5 mm axial sections were obtained through the abdomen and pelvis. One or more of the following individualized dose reduction techniques were utilized for this study: 1. Automated exposure control. 2. Adjustment of the mA and/or kV according to patient size. 3. Use of iterative reconstruction technique. FINDINGS: Comparison study is dated 04/29/2018. Images through the lung bases demonstrate minimal dependent subsegmental atelectasis bilaterally. Extensive coronary artery calcifications are seen. The liver, spleen, pancreas, and right adrenal gland are within normal limits. Bilateral nonobstructing renal calculi are seen. These measure 3 mm to 1 cm in size. A 5 mm rounded low-attenuation lesion is seen involving the superior pole the right kidney. This likely represents a cyst. No further imaging evaluation is recommended. A 6 mm rounded low-attenuation lesion is seen involving the left adrenal gland. This likely represents an adrenal adenoma. It is unchanged. Atherosclerotic calcification of the abdominal aorta is seen. The abdominal aorta tapers normally. The gallbladder is contracted. No free fluid or free air is seen within the abdomen. There is no evidence of bowel obstruction. The appendix is well-visualized and is within normal limits. There is a small fat- containing umbilical hernia. This measures 3.1 cm in size. Images through the pelvis demonstrate the urinary bladder distended with urine. Calcifications are seen within the pelvis consistent with phleboliths. Multiple diverticula are seen involving the descending and sigmoid colon. Increased density is seen within the fat surrounding diverticula within the mid sigmoid colon. This finding is consistent with mild diverticulitis. No abnormal fluid collection is seen to suggest evidence of an abscess. The wall thickening and inflammatory changes seen involving the proximal sigmoid colon previous examination have resolved. Very mild S-shaped curvature of the thoracolumbar spine is seen. Degenerative changes are seen involving the lower thoracic and throughout the lumbar spine along with both hips. An old appearing compression fracture seen involving the superior endplate of the T12 vertebral body. IMPRESSION: Findings are seen consistent with mild sigmoid diverticulitis. No abscess is seen. Electronically signed by: Ishmael Alegria MD (07/14/2021 2:58 PM) [id number] Course & Med Decision Making: Course & Med Decision Making Pertinent Labs and Imaging studies reviewed. (See chart for details) 65-year-old male presents to the emergency department complaining of low abdomen pain. Patient's physical examination concerning for acute abdominal process. CBC, CMP, lipase was ordered. CT abdomen pelvis with IV contrast ordered. Patient given 4 mg of morphine and 4 mg of Zofran. 1 L of normal saline was started. Patient's labs are unremarkable, the patient's urine is not infected. The CT abdomen pelvis does reveal diverticulitis of the sigmoid colon. The patient did require an additional 4 mg of morphine and 1 mg of Dilaudid for pain control. Concerned about intractable abdominal pain along with patient's history of diabetes, discussed with patient admission to the hospital, patient is amendable to admission planning. Patient started on Flagyl and Cipro IV regimen. Called and discussed patient case and ED work-up with inpatient management physician Dr. Cedeno who agrees patient's case warrants admission for intractable abdominal pain, Dr. Cedeno recommended an EKG and high-sensitivity troponin-I be performed prior to admission to either MedSurg or telemetry unit. Patient to be admitted for intractable abdominal pain, diverticulitis. The patient's EKG was reviewed by ED attending physician Dr. Zambrano, no acute STEMI, no ACS, no acute ischemia was appreciated, the patient's high-sensitivity troponin I is nonconcerning. The patient is currently awaiting a [facility] room assignment. Dragon Disclaimer: Dragon Disclaimer: This electronic medical record was generated, in whole or in part, using a voice recognition dictation system. Departure Departure Impression: Primary Impression: Intractable abdominal pain Additional Impression: Diverticulitis of sigmoid colon Disposition: ADMITTED INPATIENT Admitting Physician: COURTNEY [facility] Condition: GUARDED Referrals: KENNY LEVIN MD (PCP) EDUARDO SCHMID APRN July 14, 2021 13:32
[2021-07-14] MEDS ORDERED: MORPHINE SULFATE 4 MG/ML INJ. IVP ONE ×2 (13:45→14:30)
[2021-07-14] MEDS ORDERED: IV NORMAL SALINE 1000ML BAG 1,000 ML IV ONE ×2 (13:45→16:30)
[2021-07-14] MEDS ORDERED: ONDANSETRON PF 4 MG/2 ML VIAL. IVP ONE (13:45)
[2021-07-14 13:46] LABS: BASO # 0.1 x10^3/uL (0.0-0.2); BASO % 1 % (0-3); EOS # 0.3 x10^3/uL (0.0-0.7); EOS % 2 % (0-3); HEMATOCRIT 41.3 % (39.0-53.0); HEMOGLOBIN 14.1 g/dL (13.0-17.5); LYMPH # 1.9 x10^3/uL (1.0-4.8); LYMPH % 16 % (24-48); MEAN CORPUSCULAR HEMOGLOBIN 30 pg (25-35); MEAN CORPUSCULAR HGB CONC 34 g/dL (31-37); MEAN CORPUSCULAR VOLUME 88 fL (79-100); MONO # 0.8 x10^3/uL (0.0-1.1); MONO % 7 % (0-9); NEUT # 8.7 x10^3/uL (1.8-7.7); NEUT % 74 % (31-73); PLATELET COUNT 293 x10^3/uL (140-400); RED BLOOD COUNT 4.72 x10^6/uL (4.30-5.70); RED CELL DISTRIBUTION WIDTH 13.5 % (11.5-14.5); WHITE BLOOD COUNT 11.9 x10^3/uL (4.0-11.0)
[2021-07-14 13:54] LABS: CALCIUM 9.4 mg/dL (8.5-10.1); CREATININE 1.6 mg/dL (0.7-1.3); GFR 43.6; POTASSIUM 4.8 mmol/L (3.5-5.1)
[2021-07-14 14:00] LABS: ALBUMIN 3.6 g/dL (3.4-5.0); ALBUMIN/GLOBULIN RATIO 0.8 (1.0-1.7); MAGNESIUM 2.4 mg/dL (1.8-2.4); TOTAL BILIRUBIN 0.3 mg/dL (0.2-1.0); TOTAL PROTEIN 8.1 g/dL (6.4-8.2)
[2021-07-14] MEDS ORDERED: CONTRAST GIVEN. MC PRN (14:15)
[2021-07-14 14:23] LABS: BACTERIA,URINE 0 /HPF (0-FEW); RBC,URINE 0 /HPF (0-2); WBC,URINE 0 /HPF (0-4)
[2021-07-14] MEDS ORDERED: IOHEXOL 300 MG/ML 100ML VIAL. IV ONE (14:30)
--- NOTE | 2021-07-14 15:00 | RAD ---
CT scan of the abdomen and pelvis with contrast 07/14/2021 CLINICAL HISTORY: Lower Central abdominal pain. History of diverticulitis. TECHNIQUE: After the intravenous administration of 60 cc of Omnipaque 300 only, contiguous, 5 mm axia l sections were obtained through the abdomen and pelvis. One or more of the following individualized dose reduction techniques were utilized for this study: 1. Automated exposure control. 2. Adjustment of the mA and/or kV according to patient size. 3. Use of iterative reconstruction technique. FINDINGS: Comparison study is dated 04/29/2018. Images through the lung bases demonstrate minimal dependent subsegmental atelectasis bilaterally. Ext ensive coronary artery calcifications are seen. The liver, spleen, pancreas, and right adrenal gland are within normal limits. Bilateral nonobstructi ng renal calculi are seen. These measure 3 mm to 1 cm in size. A 5 mm rounded low-attenuation lesion is seen involving the superior pole the right kidney. This likely represents a cyst. No further imagi ng evaluation is recommended. A 6 mm rounded low-attenuation lesion is seen involving the left adrena l gland. This likely represents an adrenal adenoma. It is unchanged. Atherosclerotic calcification of the abdominal aorta is seen. The abdominal aorta tapers normally. Th e gallbladder is contracted. No free fluid or free air is seen within the abdomen. There is no eviden ce of bowel obstruction. The appendix is well-visualized and is within normal limits. There is a smal l fat-containing umbilical hernia. This measures 3.1 cm in size. Images through the pelvis demonstrate the urinary bladder distended with urine. Calcifications are se en within the pelvis consistent with phleboliths. Multiple diverticula are seen involving the descend ing and sigmoid colon. Increased density is seen within the fat surrounding diverticula within the mi d sigmoid colon. This finding is consistent with mild diverticulitis. No abnormal fluid collection is seen to suggest evidence of an abscess. The wall thickening and inflammatory changes seen involving the proximal sigmoid colon previous exami nation have resolved. Very mild S-shaped curvature of the thoracolumbar spine is seen. Degenerative changes are seen involv ing the lower thoracic and throughout the lumbar spine along with both hips. An old appearing salome elizabet fracture seen involving the superior endplate of the T12 vertebral body. IMPRESSION: Findings are seen consistent with mild sigmoid diverticulitis. No abscess is seen. Electronically signed by: Ishmael Alegria MD (07/14/2021 2:58 PM) [id number]
[2021-07-14] MEDS ORDERED: CIPROFLOXACIN 400MG PREMIX 200 ML IV ONE (15:30)
[2021-07-14] MEDS ORDERED: ONDANSETRON PF 4 MG/2 ML VIAL. IVP PRN (15:45)
[2021-07-14] MEDS ORDERED: HYDROmorphone 2 MG/ML INJ. IVP ONE (16:30)
--- NOTE | 2021-07-14 16:55 | PDOC1 ---
History and Physical Date of Admission Date of Admission DATE: 07/14/21 TIME: 16:55 Identification/Chief Complaint Chief Complaint Intractable abdominal pain Source Source: Patient History of Present Illness History of Present Illness Mr Penaloza is a 65-year-old male [facility] w/ PMHx Anxiety, COPD, Depression, Diabetes-Type II, GERD, High Cholesterol, Hypertension, obesity, smoker who presents to ED complaining of 2 weeks of progressively worsening abdominal pain. Pain is sharp and comes in waves described as colicky mostly relegated to the bilateral lower quadrants. He has been alternating with diar mt and hard stools. He did note after an episode of diarrhea on 07/13/2021 he had a bout of bilious emesis that was not preceded by any nausea. Pain is 8 out of 10 and sharp currently. He does have a constant low-grade 6 out of 10 cramping pain. Patient denies increased urinary frequency, urinary pressure, hematuria or other dysuria. Patient denies any recent fevers, cough, shortness of breath, chest or nasal congestion, denies chest pains, denies chest palpitations, denies back pain. Patient denies any aggravating or alleviating factors. Labs with WBC 11.9, Hb 14.1, platelets 293, NA 134, K4.8, BUN 28, CR 1.6, glucose 89, lactic acid 1.4, calcium 9.4, magnesium 2.4, bilirubin 0.3, AST 15, ALT 24, alkaline phosphatase 82, albumin 3.6, lipase 193, high-sensitivity troponin is 6, urinalysis with glucosuria otherwise bland. CT abdomen pelvis with contrast revealed old T12, compression fracture and concerns for multiple diverticula in the descending and sigmoid colon with fat stranding in the mid sigmoid no evidence of air-fluid collections outside the colon. This is consistent with likely diverticulitis. Also with bilateral nono bstructing renal calculi. EKG sinus rhythm rate [address] elevations or T WI normal axis and intervals otherwise QTC 400. Past Medical History Pulmonary: Asthma, Bronchitis Psych: Anxiety, Other Past Surgical History Past Surgical History Neck fusion ankle surgery Past Surgical History: Other Family History Family History: High Cholestrol, Hypertension Social History Smoke: <1 pack per day (Vape) ALCOHOL: none Drugs: Marijuana Current Medications Current Medications Current Medications Morphine Sulfate (Morphine Sulfate) 4 mg 1X ONCE IVP Last administered on 07/14/21at 13:50; Start 07/14/21 at 13:45; Stop 07/14/21 at 13:46; Status DC Sodium Chloride 1,000 ml @ 1,000 mls/hr 1X ONCE IV Last administered on 07/14/21at 13:50; Start 07/14/21 at 13:45; Stop 07/14/21 at 14:44; Status DC Ondansetron HCl (Zofran) 4 mg 1X ONCE IVP Last administered on 07/14/21at 13:50; Start 07/14/21 at 13:45; Stop 07/14/21 at 13:46; Status DC Iohexol (Omnipaque 300 Mg/ml) 75 ml 1X ONCE IV Last administered on 07/14/21at 14:44; Start 07/14/21 at 14:30; Stop 07/14/21 at 14:31; Status DC Info (CONTRAST GIVEN -- Rx MONITORING) 1 each PRN DAILY PRN MC SEE COMMENTS Last administered on 07/14/21at 14:44; Start 07/14/21 at 14:15; Stop 07/16/21 at 14:14 Morphine Sulfate (Morphine Sulfate) 4 mg 1X ONCE IVP Last administered on 07/14/21at 14:25; Start 07/14/21 at 14:30; Stop 07/14/21 at 14:31; Status DC Metronidazole 100 ml @ 100 mls/hr 1X ONCE IV Last administered on 07/14/21at 15:53; Start 07/14/21 at 15:30; Stop 07/14/21 at 16:29; Status DC Ciprofloxacin/ Dextrose 200 ml @ 200 mls/hr 1X ONCE IV Last administered on 07/14/21at 15:54; Start 07/14/21 at 15:30; Stop 07/14/21 at 16:29; Status DC Ondansetron HCl (Zofran) 4 mg PRN Q4HRS PRN IVP NAUSEA/VOMITING; Start 07/14/21 at 15:45 Hydromorphone HCl (Dilaudid) 1 mg 1X ONCE IVP Last administered on 07/14/21at 16:45; Start 07/14/21 at 16:30; Stop 07/14/21 at 16:31; Status DC Sodium Chloride 1,000 ml @ 1,000 mls/hr 1X ONCE IV Last administered on 07/14/21at 16:10; Start 07/14/21 at 16:30; Stop 07/14/21 at 17:29 Acetaminophen (Tylenol) 650 mg PRN Q6HRS PRN PO MILD PAIN / TEMP > 100.3'F; Start 07/14/21 at 17:00 Heparin Sodium (Porcine) (Heparin Sodium) 5,000 unit Q8HRS SQ ; Start 07/14/21 at 22:00 Hydromorphone HCl (Dilaudid) 1 mg PRN Q3HRS PRN IVP PAIN; Start 07/14/21 at 17:00 Insulin Human Lispro (HumaLOG) 0-9 UNITS TIDWMEALS SQ ; Start 07/14/21 at 17:00; Status UNV Dextrose (Dextrose 50%-Water Syringe) 12.5 gm PRN Q15MIN PRN IV SEE COMMENTS; Start 07/14/21 at 17:00; Status UNV Dextrose (Iv Dextrose 5%) 250 ml PRN Q15MIN PRN IV SEE COMMENTS; Start 07/14/21 at 17:00; Status UNV Active Scripts Active Reported Doxazosin Mesylate 2 Mg Tablet 1 Mg PO DAILY Coreg (Carvedilol) 25 Mg Tablet 12.5 Mg PO BIDWMEALS Cyclobenzaprine Hcl 10 Mg Tablet 1 Tab PO TID Buspirone Hcl 15 Mg Tablet 1 Tab PO BID Aspir 81 (Aspirin) 81 Mg Tablet. 81 Mg PO DAILY Fish Oil 1,000 Mg Capsule ([place]-3 Fatty Acids/Fish Oil) 1 Each Capsule 1 Each PO DAILY Vitamin D (Cholecalciferol (Vitamin D3)) 1,000 Unit Capsule 1,000 Unit PO DAILY Metformin Hcl Er (Metformin Hcl) 1,000 Mg Tab.er.24 1,000 Mg PO BID Glipizide 10 Mg Tablet 10 Mg PO DAILY08 Cymbalta (Duloxetine Hcl) 60 Mg Capsule.dr 60 Mg PO DAILY Ventolin Hfa Inhaler (Albuterol Sulfate) 18 Gm Hfa.aer.ad 2 Puff INH QID Albuterol Sulfate Neb Soln (Albuterol Sulfate) 2.5 Mg/3 Ml Vial.neb 1 Vial NEB PRN Q4HRS Trazodone Hcl 100 Mg Tablet 100 Mg PO HS Spiriva (Tiotropium [place]) 18 Mcg Cap.w.dev 2 Inh IH PRN DAILY PRN Tramadol Hcl 50 Mg Tablet 50 Mg PO Q6H PRN Ranitidine Hcl 150 Mg Tablet 150 Mg PO BID Lyrica (Pregabalin) 75 Mg Capsule 75 Mg PO BID Bupropion Hcl Sr (Bupropion Hcl) 150 Mg Tablet.er 150 Mg PO DAILY Lovastatin 20 Mg Tablet 20 Mg PO HS Allergies Allergies: Coded Allergies: gabapentin (Verified Allergy, Intermediate, 07/14/18) liraglutide (Verified Allergy, Intermediate, 04/29/18) niacin (Unverified Allergy, Intermediate, 07/14/18) nicotine (Unverified Allergy, Intermediate, SKIN IRRITATION, 07/14/18) PATCH ONLY pravastatin (Unverified Allergy, Intermediate, 12/31/16) varenicline (Unverified Allergy, Intermediate, 12/31/16) hydrocodone (Unverified Adverse Reaction, Intermediate, NAUSEA, 07/14/18) ROS General: YES: Fatigue, Malaise, Appetite; No: Chills, Night Sweats, Other PSYCHOLOGICAL ROS: No: Anxiety, Behavioral Disorder, Concentration difficultie, Decreased libido, Depression, Disorientation, Hallucinations, Hostility, Irritablity, Memory difficulties, Mood Swings, Obsessive thoughts, Physical abuse, Sexual abuse, Sleep disturbances, Suicidal ideation, Other Eyes: No Blurry vision, No Decreased vision, No Double vision, No Dry eyes, No Excessive tearing, No Eye Pain, No Itchy Eyes, No Loss of vision, No Photophobia, No Scotomata, No Uses contacts, No Uses glasses, No Other HEENT: No: Heacaches, Visual Changes, Hearing change, Nasal congestion, Nasal discharge, Oral lesions, Sinus pain, Sore Throat, Epistaxis, Sneezing, Snoring, Tinnitus, Vertigo, Vocal changes, Other ALLERGY AND IMMUNOLOGY: No: Hives, Insect Bite Sensitivity, Itchy/Watery Eyes, Nasal Congestion, Post Nasal Drip, Seasonal Allergies, Other Hematological and Lymphatic: No: Bleeding Problems, Blood Clots, Blood Transfusions, Brusing, Night Sweats, Pallor, Swollen Lymph Nodes, Other ENDOCRINE: No: Breast Changes, Galactorrhea, Hair Pattern Changes, Hot Flashes, Malaise/lethargy, Mood Swings, Palpitations, Polydipsia/polyuria, Skin Changes, Temperature Intolerance, Unexpected Weight Changes, Other Breast: No New/Changing Breast Lumps, No Nipple changes, No Nipple discharge, No Other Respiratory: No: Cough, Hemoptysis, Orthopnea, Pleuritic Pain, Shortness of breath, SOB with excertion, Sputum Changes, Stridor, Tachypnea, Wheezing, Other Cardiovascular: No Chest Pain, No Palpitations, No Orthopnea, No Paroxysmal Noc. Dyspnea, No Edema, No Lt Headedness, No Other Gastrointestinal: Yes Vomiting, Yes Abdominal Pain, Yes Diarrhea, Yes Constipation; No Nausea, No Melena, No Hematochezia, No Other Genitourinary: No Dysuria, No Frequency, No Incontinence, No Hematuria, No Retention, No Discharge, No Urgency, No Pain, No Flank Pain, No Other, No , No , No , No , No , No , No Musculoskeletal: No Gait Disturbance, No Joint Pain, No Joint Stiffness, No Joint Swelling, No Muscle Pain, No Muscular Weakness, No Pain In:, No Swelling In:, No Other Neurological: No Behavorial Changes, No Bowel/Bladder ControlChng, No Confusion, No Dizziness, No Gait Disturbance, No Headaches, No Impaired Coord/balance, No Memory Loss, No Numbness/Tingling, No Seizures, No Speech Problems, No Tremors, No Visual Changes, No Weakness, No Other Skin: No Dry Skin, No Eczema, No Hair Changes, No Lumps, No Mole Changes, No Mottling, No Nail Changes, No Pruritus, No Rash, No Skin Lesion Changes, No Other, No Acne Physical Exam General: Alert, Oriented X3, Cooperative, moderate distress HEENT: Atraumatic, PERRLA, EOMI, Mucous membr. moist/pink Lungs: Clear to auscultation, Normal air movement Heart: S1S2, RRR, no thrills, no rubs, no gallops, no murmurs Abdomen: Normal bowel sounds, Soft, No hepatosplenomegaly, No masses, Other (Left lower quadrant pain) Rectal Exam: not examined Extremities: No clubbing, No cyanosis, No edema, Normal pulses, No tenderness/swelling Skin: No rashes, No breakdown, No significant lesion Neuro: Normal gait, Normal speech, Strength at 5/5 X4 ext, Normal tone, Sensation intact, Cranial nerves 3-12 NL, Reflexes 2+ Psych/Mental Status: Mental status NL, Mood NL Vitals Vitals Vital Signs Date Time Temp Pulse Resp B/P (MAP) Pulse Ox O2 Delivery O2 Flow Rate FiO2 07/14/21 16:45 18 98 Room Air 07/14/21 16:18 92 104/70 (81) 07/14/21 13:00 98.2 98.2 Labs Labs Laboratory Tests Test 07/14/21 13:18 07/14/21 13:30 07/14/21 13:46 Urine Collection Type Unknown Urine Color (Auto) Light yellow Urine Turbidity Clear Urine pH (Auto) 5.0 (<5.0-8.0) Urine Specific [place] 1.011 (1.000-1.030) Urine Protein (Auto) Negative mg/dL (Negative) Urine Glucose (Auto)(UA) >=1000 mg/dL (Negative) Urine Ketones (Auto) Negative mg/dL (Negative) Urine Blood (Auto) Negative (Negative) Urine Nitrite Negative (Negative) Urine Bilirubin (Auto) Negative (Negative) Urine Urobilinogen (Auto) Normal mg/dL (Normal) Urine Leukocyte Esterase (Auto) Negative (Negative) Urine RBC 0 /HPF (0-2) Urine WBC 0 /HPF (0-4) Urine Bacteria 0 /HPF (0-FEW) White Blood Count 11.9 x10^3/uL (4.0-11.0) Red Blood Count 4.72 x10^6/uL (4.30-5.70) Hemoglobin 14.1 g/dL (13.0-17.5) Hematocrit 41.3 % (39.0-53.0) Mean Corpuscular Volume 88 fL (79-100) Mean Corpuscular Hemoglobin 30 pg (25-35) Mean Corpuscular Hemoglobin Concent 34 g/dL (31-37) Red Cell Distribution Width 13.5 % (11.5-14.5) Platelet Count 293 x10^3/uL (140-400) Neutrophils (%) (Auto) 74 % (31-73) Lymphocytes (%) (Auto) 16 % (24-48) Monocytes (%) (Auto) 7 % (0-9) Eosinophils (%) (Auto) 2 % (0-3) Basophils (%) (Auto) 1 % (0-3) Neutrophils # (Auto) 8.7 x10^3/uL (1.8-7.7) Lymphocytes # (Auto) 1.9 x10^3/uL (1.0-4.8) Monocytes # (Auto) 0.8 x10^3/uL (0.0-1.1) Eosinophils # (Auto) 0.3 x10^3/uL (0.0-0.7) Basophils # (Auto) 0.1 x10^3/uL (0.0-0.2) Sodium Level 134 mmol/L (136-145) Potassium Level 4.8 mmol/L (3.5-5.1) Chloride Level 97 mmol/L (98-107) Carbon Dioxide Level 26 mmol/L (21-32) Anion Gap 11 (6-14) Blood Urea Nitrogen 28 mg/dL (8-26) Creatinine 1.6 mg/dL (0.7-1.3) Estimated GFR (Cockcroft-Gault) 43.6 BUN/Creatinine Ratio 18 (6-20) Glucose Level 89 mg/dL (70-99) Calcium Level 9.4 mg/dL (8.5-10.1) Magnesium Level 2.4 mg/dL (1.8-2.4) Total Bilirubin 0.3 mg/dL (0.2-1.0) Aspartate Amino Transf (AST/SGOT) 15 U/L (15-37) Alanine Aminotransferase (ALT/SGPT) 24 U/L (16-63) Alkaline Phosphatase 82 U/L (46-116) Troponin I High Sensitivity 6 ng/L (4-75) Total Protein 8.1 g/dL (6.4-8.2) Albumin 3.6 g/dL (3.4-5.0) Albumin/Globulin Ratio 0.8 (1.0-1.7) Lipase 193 U/L (73-393) Lactic Acid Level 1.4 mmol/L (0.4-2.0) Laboratory Tests Test 07/14/21 13:18 07/14/21 13:30 07/14/21 13:46 Urine Collection Type Unknown Urine Color (Auto) Light yellow Urine Turbidity Clear Urine pH (Auto) 5.0 (<5.0-8.0) Urine Specific [place] 1.011 (1.000-1.030) Urine Protein (Auto) Negative mg/dL (Negative) Urine Glucose (Auto)(UA) >=1000 mg/dL (Negative) Urine Ketones (Auto) Negative mg/dL (Negative) Urine Blood (Auto) Negative (Negative) Urine Nitrite Negative (Negative) Urine Bilirubin (Auto) Negative (Negative) Urine Urobilinogen (Auto) Normal mg/dL (Normal) Urine Leukocyte Esterase (Auto) Negative (Negative) Urine RBC 0 /HPF (0-2) Urine WBC 0 /HPF (0-4) Urine Bacteria 0 /HPF (0-FEW) White Blood Count 11.9 x10^3/uL (4.0-11.0) Red Blood Count 4.72 x10^6/uL (4.30-5.70) Hemoglobin 14.1 g/dL (13.0-17.5) Hematocrit 41.3 % (39.0-53.0) Mean Corpuscular Volume 88 fL (79-100) Mean Corpuscular Hemoglobin 30 pg (25-35) Mean Corpuscular Hemoglobin Concent 34 g/dL (31-37) Red Cell Distribution Width 13.5 % (11.5-14.5) Platelet Count 293 x10^3/uL (140-400) Neutrophils (%) (Auto) 74 % (31-73) Lymphocytes (%) (Auto) 16 % (24-48) Monocytes (%) (Auto) 7 % (0-9) Eosinophils (%) (Auto) 2 % (0-3) Basophils (%) (Auto) 1 % (0-3) Neutrophils # (Auto) 8.7 x10^3/uL (1.8-7.7) Lymphocytes # (Auto) 1.9 x10^3/uL (1.0-4.8) Monocytes # (Auto) 0.8 x10^3/uL (0.0-1.1) Eosinophils # (Auto) 0.3 x10^3/uL (0.0-0.7) Basophils # (Auto) 0.1 x10^3/uL (0.0-0.2) Sodium Level 134 mmol/L (136-145) Potassium Level 4.8 mmol/L (3.5-5.1) Chloride Level 97 mmol/L (98-107) Carbon Dioxide Level 26 mmol/L (21-32) Anion Gap 11 (6-14) Blood Urea Nitrogen 28 mg/dL (8-26) Creatinine 1.6 mg/dL (0.7-1.3) Estimated GFR (Cockcroft-Gault) 43.6 BUN/Creatinine Ratio 18 (6-20) Glucose Level 89 mg/dL (70-99) Calcium Level 9.4 mg/dL (8.5-10.1) Magnesium Level 2.4 mg/dL (1.8-2.4) Total Bilirubin 0.3 mg/dL (0.2-1.0) Aspartate Amino Transf (AST/SGOT) 15 U/L (15-37) Alanine Aminotransferase (ALT/SGPT) 24 U/L (16-63) Alkaline Phosphatase 82 U/L (46-116) Troponin I High Sensitivity 6 ng/L (4-75) Total Protein 8.1 g/dL (6.4-8.2) Albumin 3.6 g/dL (3.4-5.0) Albumin/Globulin Ratio 0.8 (1.0-1.7) Lipase 193 U/L (73-393) Lactic Acid Level 1.4 mmol/L (0.4-2.0) Images Images CT ABD PELV W/ IV CONTRST ONLY CT scan of the abdomen and pelvis with contrast 07/14/2021 CLINICAL HISTORY: Lower Central abdominal pain. History of diverticulitis. TECHNIQUE: After the intravenous administration of 60 cc of Omnipaque 300 only, contiguous, 5 mm axial sections were obtained through the abdomen and pelvis. One or more of the following individualized dose reduction techniques were utilized for this study: 1. Automated exposure control. 2. Adjustment of the mA and/or kV according to patient size. 3. Use of iterative reconstruction technique. FINDINGS: Comparison study is dated 04/29/2018. Images through the lung bases demonstrate minimal dependent subsegmental atelectasis bilaterally. Extensive coronary artery calcifications are seen. The liver, spleen, pancreas, and right adrenal gland are within normal limits. Bilateral nonobstructing renal calculi are seen. These measure 3 mm to 1 cm in size. A 5 mm rounded low-attenuation lesion is seen involving the superior pole the right kidney. This likely represents a cyst. No further imaging evaluation is recommended. A 6 mm rounded low-attenuation lesion is seen involving the left adrenal gland. This likely represents an adrenal adenoma. It is unchanged. Atherosclerotic calcification of the abdominal aorta is seen. The abdominal aorta tapers normally. The gallbladder is contracted. No free fluid or free air is seen within the abdomen. There is no evidence of bowel obstruction. The appendix is well-visualized and is within normal limits. There is a small fat- containing umbilical hernia. This measures 3.1 cm in size. Images through the pelvis demonstrate the urinary bladder distended with urine. Calcifications are seen within the pelvis consistent with phleboliths. Multiple diverticula are seen involving the descending and sigmoid colon. Increased density is seen within the fat surrounding diverticula within the mid sigmoid colon. This finding is consistent with mild diverticulitis. No abnormal fluid collection is seen to suggest evidence of an abscess. The wall thickening and inflammatory changes seen involving the proximal sigmoid colon previous examination have resolved. Very mild S-shaped curvature of the thoracolumbar spine is seen. Degenerative changes are seen involving the lower thoracic and throughout the lumbar spine along with both hips. An old appearing compression fracture seen involving the superior endplate of the T12 vertebral body. IMPRESSION: Findings are seen consistent with mild sigmoid diverticulitis. No abscess is seen. VTE Prophylaxis Ordered VTE Prophylaxis Devices: Yes VTE Pharmacological Prophylaxi: Yes Assessment/Plan Assessment/Plan Intractable abdominal pain -seems to be due to acute diverticulitis. IV Dilaudid. Placed on IV Cipro and Flagyl liquid diet advance as tolerated. Consult GI. SIRS/sepsis - with Leukocytosis -likely due to acute diverticulitis Sigmoid diverticulitis - on CT abdomen. treatment as above, admitted for pain control DEBORAH - likely vasomotor nephropathy, though he has some underlying CKD likely GERD - on H2 jose luis Esophageal strictures - reports past esophageal dilations at the [facility] DM2 -hold metformin for DEBORAH. On sliding scale continue Jardiance. We will add Haroonbryandestiny thinks he is on Januvia Obesity, BMI 33.3 -healthy lifestyle modification Insomnia -ambien prn COPD - with asthma, counseled on cutting back on vape and prn albuterol Dyslipidemia - statin HTN - on lisinopril/hctz, hold for DEBORAH Smoker - vapes now FEN - Liquid diet PPX - heparin FULL CODE Dispo - inpatient DPOA is Sarai Penaloza, spouse Justifications for Admission Other Justification MARLON RÍOS MD July 14, 2021 16:55
[2021-07-14] MEDS ORDERED: DEXTROSE 50% 25 GM / 50ML DISP.SYRIN. IV PRN (17:00)
[2021-07-14] MEDS ORDERED: ACETAMINOPHEN 325 MG TABLET. PO PRN (17:00)
[2021-07-14] MEDS: INSULIN LISPRO 300 UNITS/3 ML VIAL. SQ SCH (17:00)
[2021-07-14] MEDS ORDERED: IV DEXTROSE 5% 250 ML BAG. IV PRN (17:00)
[2021-07-14] MEDS ORDERED: MULT-659 PO (17:27)
[2021-07-14] MEDS ORDERED: METF10007 PO (17:27)
[2021-07-14] MEDS ORDERED: ZOLP10TA PO (17:27)
[2021-07-14] MEDS ORDERED: TRAM100T10 PO (17:27)
[2021-07-14] MEDS ORDERED: EMPA25TA3 PO (17:27)
[2021-07-14] MEDS ORDERED: TRAZ-123 PO (17:27)
[2021-07-14] MEDS ORDERED: MIRT-7 PO (17:27)
[2021-07-14] MEDS ORDERED: METF500T16 PO (17:27)
[2021-07-14] MEDS ORDERED: LISI-374 PO (17:27)
[2021-07-14] MEDS ORDERED: BUPR300T3 PO (17:27)
[2021-07-14] MEDS ORDERED: INSU100V13 SQ (17:27)
[2021-07-14] MEDS ORDERED: CYCL10TA19 PO (17:27)
[2021-07-14] MEDS ORDERED: MIRTAZAPINE 15 MG TABLET PO PRN (18:45)
[2021-07-14] MEDS ORDERED: CYCLOBENZAPRINE 10 MG TABLET. PO PRN (18:45)
[2021-07-14 19:00] VITALS: BP 126/48
[2021-07-14] MEDS ORDERED: traMADol 50 MG TABLET PO PRN (19:00)
[2021-07-14] MEDS: CARVEDILOL 12.5 MG TABLET. PO SCH (19:00)
[2021-07-14] MEDS: traZODone 100 MG TABLET. PO SCH (21:53)
[2021-07-14] MEDS: busPIRone 5 MG TABLET. PO SCH (21:53)
[2021-07-14] MEDS: PSYLLIUM HUSK (SUGAR FREE) 1 PKT PACKET PO SCH (21:54)
[2021-07-14] MEDS: INSULIN GLARGINE SYRINGE. SQ SCH (21:55)
[2021-07-14] MEDS: HEPARIN for SUB-Q USE 5,000 UNIT/ML VIAL. SQ SCH (22:02)
[2021-07-14 23:00] VITALS: BP 105/70
[2021-07-14] MEDS: ZOLPIDEM 5 MG TABLET. PO PRN (23:31)
[2021-07-15 03:00] VITALS: BP 91/62
[2021-07-15 05:32] LABS: BASO # 0.1 x10^3/uL (0.0-0.2); BASO % 1 % (0-3); EOS # 0.3 x10^3/uL (0.0-0.7); EOS % 4 % (0-3); HEMATOCRIT 36.6 % (39.0-53.0); HEMOGLOBIN 12.2 g/dL (13.0-17.5); LYMPH # 2.3 x10^3/uL (1.0-4.8); LYMPH % 28 % (24-48); MEAN CORPUSCULAR HEMOGLOBIN 30 pg (25-35); MEAN CORPUSCULAR HGB CONC 33 g/dL (31-37); MEAN CORPUSCULAR VOLUME 89 fL (79-100); MONO # 0.6 x10^3/uL (0.0-1.1); MONO % 8 % (0-9); NEUT % 60 % (31-73); PLATELET COUNT 232 x10^3/uL (140-400); RED BLOOD COUNT 4.12 x10^6/uL (4.30-5.70); RED CELL DISTRIBUTION WIDTH 13.5 % (11.5-14.5); WHITE BLOOD COUNT 8.4 x10^3/uL (4.0-11.0)
--- NOTE | 2021-07-15 05:53 | EKG ---
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
[2021-07-15] MEDS: HEPARIN for SUB-Q USE 5,000 UNIT/ML VIAL. SQ SCH ×3 (06:04→22:33)
[2021-07-15 06:07] LABS: ALBUMIN 2.9 g/dL (3.4-5.0); ALBUMIN/GLOBULIN RATIO 0.8 (1.0-1.7); CALCIUM 8.7 mg/dL (8.5-10.1); CREATININE 1.2 mg/dL (0.7-1.3); GFR 60.8; TOTAL BILIRUBIN 0.4 mg/dL (0.2-1.0); TOTAL PROTEIN 6.6 g/dL (6.4-8.2)
[2021-07-15 07:00] VITALS: BP 88/47
[2021-07-15] MEDS: CARVEDILOL 12.5 MG TABLET. PO SCH ×2 (08:00→18:02)
[2021-07-15] MEDS: INSULIN LISPRO 300 UNITS/3 ML VIAL. SQ SCH ×3 (08:00→17:00)
[2021-07-15] MEDS ORDERED: PANTOPRAZOLE 40 MG TABLET.DR. PO SCH (09:00)
[2021-07-15] MEDS: EMPAGLIFLOZIN 25 MG TABLET. PO SCH (09:00)
[2021-07-15] MEDS: MULTIVITAMIN with MINERAL TABLET. PO SCH (09:00)
[2021-07-15] MEDS: ASPIRIN ENTERIC COATED 81 MG TABLET.DR. PO SCH (09:00)
--- NOTE | 2021-07-15 09:08 | PDOC2 ---
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 Ill x 2 weeks with lower abdominal cramping - gradually worse, then much worse yesterday. CT shows mild sigmoid diverticulitis, receiving IV Cipro and Flagyl, also Metamucil. Tolerating clears, would really like some coffee, feels hungry. Pain is better today. We saw here in the hospital in 2019 for diverticulitis. H/o GERD on Prilosec Q a.m. and Pepcid QHS. No dysphagia but possible esophageal dilations in past. No n/v or bleeding. Lately alternating hard and loose stools but typically no issues with either. Past EGD and colonoscopy at [facility], also colonoscopy by Dr. Rouse in 2019 (for follow-up after diverticulitis) showed adenomatous polyps and diverticulosis. No GB, liver, or pancreas history. Possible h/o "ulcer." On ASA. notes recent hiccups - associated w/ increased abd cramping. Also, has had lowish BP - similar to past episode of diverticulitis. Had low Cortisol and reports negative endocrinology workup. She also mentions he eats popcorn and peanuts (not in excess). PMH: PMH: HTN, HLD, COPD, DM, peripheral neuropathy, OA, nephrolithiasis neck fusion, bronchoscopy/mediastinoscopy w/ lymph node biopsy, ankle surgery FH: Family History: No pertinent hx Social History: Smoke: <1 pack per day (vapes) ROS: GEN: Denies fevers, chills, sweats HEENT: Denies blurred vision, sore throat CV: Denies chest pain RESP: Denies shortness of air, cough GI: Per HPI : Denies hematuria, dysuria ENDO: Denies weight changes NEURO: Denies confusion, dizziness MSK: +some chronic pain SKIN: Denies jaundice, pruritus Vitals: Vitals: Vital Signs Date Time Temp Pulse Resp B/P (MAP) Pulse Ox O2 Delivery O2 Flow Rate FiO2 07/15/21 07:00 97.8 89 14 88/47 (61) 98 Nasal Cannula 2.0 97.8 Labs: Labs: Laboratory Tests Test 07/14/21 13:18 07/14/21 13:30 07/14/21 13:46 07/14/21 17:39 Urine Collection Type Unknown Urine Color (Auto) Light yellow Urine Turbidity Clear Urine pH (Auto) 5.0 (<5.0-8.0) Urine Specific [place] 1.011 (1.000-1.030) Urine Protein (Auto) Negative mg/dL (Negative) Urine Glucose (Auto)(UA) >=1000 mg/dL (Negative) Urine Ketones (Auto) Negative mg/dL (Negative) Urine Blood (Auto) Negative (Negative) Urine Nitrite Negative (Negative) Urine Bilirubin (Auto) Negative (Negative) Urine Urobilinogen (Auto) Normal mg/dL (Normal) Urine Leukocyte Esterase (Auto) Negative (Negative) Urine RBC 0 /HPF (0-2) Urine WBC 0 /HPF (0-4) Urine Bacteria 0 /HPF (0-FEW) White Blood Count 11.9 x10^3/uL (4.0-11.0) Red Blood Count 4.72 x10^6/uL (4.30-5.70) Hemoglobin 14.1 g/dL (13.0-17.5) Hematocrit 41.3 % (39.0-53.0) Mean Corpuscular Volume 88 fL (79-100) Mean Corpuscular Hemoglobin 30 pg (25-35) Mean Corpuscular Hemoglobin Concent 34 g/dL (31-37) Red Cell Distribution Width 13.5 % (11.5-14.5) Platelet Count 293 x10^3/uL (140-400) Neutrophils (%) (Auto) 74 % (31-73) Lymphocytes (%) (Auto) 16 % (24-48) Monocytes (%) (Auto) 7 % (0-9) Eosinophils (%) (Auto) 2 % (0-3) Basophils (%) (Auto) 1 % (0-3) Neutrophils # (Auto) 8.7 x10^3/uL (1.8-7.7) Lymphocytes # (Auto) 1.9 x10^3/uL (1.0-4.8) Monocytes # (Auto) 0.8 x10^3/uL (0.0-1.1) Eosinophils # (Auto) 0.3 x10^3/uL (0.0-0.7) Basophils # (Auto) 0.1 x10^3/uL (0.0-0.2) Sodium Level 134 mmol/L (136-145) Potassium Level 4.8 mmol/L (3.5-5.1) Chloride Level 97 mmol/L (98-107) Carbon Dioxide Level 26 mmol/L (21-32) Anion Gap 11 (6-14) Blood Urea Nitrogen 28 mg/dL (8-26) Creatinine 1.6 mg/dL (0.7-1.3) Estimated GFR (Cockcroft-Gault) 43.6 BUN/Creatinine Ratio 18 (6-20) Glucose Level 89 mg/dL (70-99) Calcium Level 9.4 mg/dL (8.5-10.1) Magnesium Level 2.4 mg/dL (1.8-2.4) Total Bilirubin 0.3 mg/dL (0.2-1.0) Aspartate Amino Transf (AST/SGOT) 15 U/L (15-37) Alanine Aminotransferase (ALT/SGPT) 24 U/L (16-63) Alkaline Phosphatase 82 U/L (46-116) Troponin I High Sensitivity 6 ng/L (4-75) Total Protein 8.1 g/dL (6.4-8.2) Albumin 3.6 g/dL (3.4-5.0) Albumin/Globulin Ratio 0.8 (1.0-1.7) Lipase 193 U/L (73-393) Lactic Acid Level 1.4 mmol/L (0.4-2.0) Glucose (Fingerstick) 68 mg/dL (70-99) Test 07/14/21 17:46 07/14/21 20:38 07/15/21 04:40 Glucose (Fingerstick) 70 mg/dL (70-99) 152 mg/dL (70-99) White Blood Count 8.4 x10^3/uL (4.0-11.0) Red Blood Count 4.12 x10^6/uL (4.30-5.70) Hemoglobin 12.2 g/dL (13.0-17.5) Hematocrit 36.6 % (39.0-53.0) Mean Corpuscular Volume 89 fL (79-100) Mean Corpuscular Hemoglobin 30 pg (25-35) Mean Corpuscular Hemoglobin Concent 33 g/dL (31-37) Red Cell Distribution Width 13.5 % (11.5-14.5) Platelet Count 232 x10^3/uL (140-400) Neutrophils (%) (Auto) 60 % (31-73) Lymphocytes (%) (Auto) 28 % (24-48) Monocytes (%) (Auto) 8 % (0-9) Eosinophils (%) (Auto) 4 % (0-3) Basophils (%) (Auto) 1 % (0-3) Neutrophils # (Auto) 5.0 x10^3/uL (1.8-7.7) Lymphocytes # (Auto) 2.3 x10^3/uL (1.0-4.8) Monocytes # (Auto) 0.6 x10^3/uL (0.0-1.1) Eosinophils # (Auto) 0.3 x10^3/uL (0.0-0.7) Basophils # (Auto) 0.1 x10^3/uL (0.0-0.2) Sodium Level 139 mmol/L (136-145) Potassium Level 4.0 mmol/L (3.5-5.1) Chloride Level 103 mmol/L (98-107) Carbon Dioxide Level 28 mmol/L (21-32) Anion Gap 8 (6-14) Blood Urea Nitrogen 16 mg/dL (8-26) Creatinine 1.2 mg/dL (0.7-1.3) Estimated GFR (Cockcroft-Gault) 60.8 BUN/Creatinine Ratio 13 (6-20) Glucose Level 87 mg/dL (70-99) Calcium Level 8.7 mg/dL (8.5-10.1) Total Bilirubin 0.4 mg/dL (0.2-1.0) Aspartate Amino Transf (AST/SGOT) 11 U/L (15-37) Alanine Aminotransferase (ALT/SGPT) 18 U/L (16-63) Alkaline Phosphatase 65 U/L (46-116) Total Protein 6.6 g/dL (6.4-8.2) Albumin 2.9 g/dL (3.4-5.0) Albumin/Globulin Ratio 0.8 (1.0-1.7) Allergies: Coded Allergies: gabapentin (Verified Allergy, Intermediate, 07/14/18) liraglutide (Verified Allergy, Intermediate, 04/29/18) niacin (Unverified Allergy, Intermediate, 07/14/18) nicotine (Unverified Allergy, Intermediate, SKIN IRRITATION, 07/14/18) PATCH ONLY pravastatin (Unverified Allergy, Intermediate, 12/31/16) varenicline (Unverified Allergy, Intermediate, 12/31/16) hydrocodone (Unverified Adverse Reaction, Intermediate, NAUSEA, 07/14/18) Medications: Current Medications Medications (Trade) Dose Ordered Sig/Adilson Route PRN Reason Start Time Stop Time Status Last Admin Dose Admin Morphine Sulfate (Morphine Sulfate) 4 mg 1X ONCE IVP 07/14/21 13:45 07/14/21 13:46 DC 07/14/21 13:50 Sodium Chloride 1,000 ml @ 1,000 mls/hr 1X ONCE IV 07/14/21 13:45 07/14/21 14:44 DC 07/14/21 13:50 Ondansetron HCl (Zofran) 4 mg 1X ONCE IVP 07/14/21 13:45 07/14/21 13:46 DC 07/14/21 13:50 Iohexol (Omnipaque 300 Mg/ml) 75 ml 1X ONCE IV 07/14/21 14:30 07/14/21 14:31 DC 07/14/21 14:44 Info (CONTRAST GIVEN -- Rx MONITORING) 1 each PRN DAILY PRN MC SEE COMMENTS 07/14/21 14:15 07/16/21 14:14 07/14/21 14:44 Morphine Sulfate (Morphine Sulfate) 4 mg 1X ONCE IVP 07/14/21 14:30 07/14/21 14:31 DC 07/14/21 14:25 Metronidazole 100 ml @ 100 mls/hr 1X ONCE IV 07/14/21 15:30 07/14/21 16:29 DC 07/14/21 15:53 Ciprofloxacin/ Dextrose 200 ml @ 200 mls/hr 1X ONCE IV 07/14/21 15:30 07/14/21 16:29 DC 07/14/21 15:54 Hydromorphone HCl (Dilaudid) 1 mg 1X ONCE IVP 07/14/21 16:30 07/14/21 16:31 DC 07/14/21 16:45 Sodium Chloride 1,000 ml @ 1,000 mls/hr 1X ONCE IV 07/14/21 16:30 07/14/21 17:29 DC 07/14/21 16:10 Heparin Sodium (Porcine) (Heparin Sodium) 5,000 unit Q8HRS SQ 07/14/21 22:00 07/15/21 06:04 Trazodone HCl (Desyrel) 200 mg QHS PO 07/14/21 21:00 07/14/21 21:53 Buspirone HCl (Buspar) 15 mg BID PO 07/14/21 21:00 07/14/21 21:53 Insulin Glargine (Lantus Syringe) 35 unit BID SQ 07/14/21 21:00 07/14/21 21:55 Zolpidem Tartrate (Ambien) 5 mg PRN QHS PRN PO INSOMNIA, MAY REPEAT X1 07/14/21 19:15 07/14/21 23:31 Metronidazole 100 ml @ 100 mls/hr Q8HRS IV 07/14/21 22:00 07/17/21 21:59 07/15/21 06:00 Psyllium Hydrophilic Mucilloid (Metamucil Fiber Packet) 1 pkt QHS PO 07/14/21 21:00 07/14/21 21:54 Imaging: Imaging: CT A/P 07/14/21 Images through the lung bases demonstrate minimal dependent subsegmental atelectasis bilaterally. Extensive coronary artery calcifications are seen. The liver, spleen, pancreas, and right adrenal gland are within normal limits. Bilateral nonobstructing renal calculi are seen. These measure 3 mm to 1 cm in size. A 5 mm rounded low-attenuation lesion is seen involving the superior pole the right kidney. This likely represents a cyst. No further imaging evaluation is recommended. A 6 mm rounded low-attenuation lesion is seen involving the left adrenal gland. This likely represents an adrenal adenoma. It is unchanged. Atherosclerotic calcification of the abdominal aorta is seen. The abdominal aorta tapers normally. The gallbladder is contracted. No free fluid or free air is seen within the abdomen. There is no evidence of bowel obstruction. The jose endix is well-visualized and is within normal limits. There is a small fat- containing umbilical hernia. This measures 3.1 cm in size. Images through the pelvis demonstrate the urinary bladder distended with urine. Calcifications are seen within the pelvis consistent with phleboliths. Multiple diverticula are seen involving the descending and sigmoid colon. Increased density is seen within the fat surrounding diverticula within the mid sigmoid colon. This finding is consistent with mild diverticulitis. No abnormal fluid collection is seen to suggest evidence of an abscess. The wall thickening and inflammatory changes seen involving the proximal sigmoid colon previous examination have resolved. Very mild S-shaped curvature of the thoracolumbar spine is seen. Degenerative changes are seen involving the lower thoracic and throughout the lumbar spine along with both hips. An old appearing compression fracture seen involving the superior endplate of the T12 vertebral body. IMPRESSION: Findings are seen consistent with mild sigmoid diverticulitis. No abscess is seen. PE: GEN: NAD HEENT: Atraumatic, PERRL LUNGS: clear, NC 2L HEART: RRR ABD: quiet BS, soft, mild discomfort across lower abdomen, umb hernia EXTREMITY: No edema SKIN: No rashes, no jaundice NEURO/PSYCH: A & O 3 A/P: A/P: Diverticulitis Mild leukocytosis (resolved), hypotension GERD - on PPI Q a.m. + H2 jose luis QHS Hiccups, alternating bowel habits - recent issue CRC screen, h/o adenomatous polyps - UTD (2019) -- Agree w/ IV atbx. Okay to try full liquids for lunch. Consider surgery opinion re: elective resection since this is a recurrent issue. Continue PPI. EDSON MICHEL July 15, 2021 09:08
[2021-07-15] MEDS: CIPROFLOXACIN 200MG PREMIX 100 ML IV SCH ×2 (09:28→20:46)
[2021-07-15] MEDS: busPIRone 5 MG TABLET. PO SCH ×2 (09:29→20:44)
[2021-07-15] MEDS: DULoxetine HCL 30 MG CAPSULE.DR PO SCH (09:29)
[2021-07-15] MEDS: buPROPion XL 150 MG TAB.ER.24H. PO SCH (09:30)
[2021-07-15] MEDS: INSULIN GLARGINE SYRINGE. SQ SCH ×2 (09:33→21:02)
[2021-07-15 11:00] VITALS: BP 107/66
--- NOTE | 2021-07-15 11:11 | PDOC ---
[employer] PROGRESS NOTE Date of Service DOS: DATE: 07/15/21 TIME: 11:10 Chief Complaint Chief Complaint Intractable abdominal pain SIRS Sepsis Sigmoid diverticulitis DEBORAH GERD Esophageal strictures Diabetes Obesity Insomnia COPD Hyperlipidemia Hypertension Tobacco/vape use History of Present Illness History of Present Illness 07/15/2021 Patient seen and examined Discussed with RN Chart reviewed He still has abdominal distention and pain I called the pharmacy he is indeed on Cipro and metronidazole I also ordered Protonix Discussed with GI nurse practitioner Vitals/I&O Vitals/I&O: Vital Signs Date Time Temp Pulse Resp B/P (MAP) Pulse Ox O2 Delivery O2 Flow Rate FiO2 07/15/21 08:00 Room Air 07/15/21 08:00 89 88/47 07/15/21 07:00 97.8 14 98 2.0 97.8 I & O 07/14/21 07/14/21 07/15/21 15:00 23:00 07:00 Intake Total 1900 ml Output Total 300 ml Balance 1900 ml -300 ml Physical Exam General: Alert, Oriented X3, Cooperative, moderate distress Lungs: Clear Abdomen: Normal bowel sounds, Soft, No hepatosplenomegaly, No masses, Other (Left lower quadrant pain) Extremities: No clubbing, No cyanosis, No edema, Normal pulses, No tenderness/swelling Skin: No rashes, No breakdown, No significant lesion Labs Labs: Laboratory Tests Test 07/14/21 13:18 07/14/21 13:30 07/14/21 13:46 07/14/21 17:39 Urine Collection Type Unknown Urine Color (Auto) Light yellow Urine Turbidity Clear Urine pH (Auto) 5.0 (<5.0-8.0) Urine Specific [place] 1.011 (1.000-1.030) Urine Protein (Auto) Negative mg/dL (Negative) Urine Glucose (Auto)(UA) >=1000 mg/dL (Negative) Urine Ketones (Auto) Negative mg/dL (Negative) Urine Blood (Auto) Negative (Negative) Urine Nitrite Negative (Negative) Urine Bilirubin (Auto) Negative (Negative) Urine Urobilinogen (Auto) Normal mg/dL (Normal) Urine Leukocyte Esterase (Auto) Negative (Negative) Urine RBC 0 /HPF (0-2) Urine WBC 0 /HPF (0-4) Urine Bacteria 0 /HPF (0-FEW) White Blood Count 11.9 x10^3/uL (4.0-11.0) Red Blood Count 4.72 x10^6/uL (4.30-5.70) Hemoglobin 14.1 g/dL (13.0-17.5) Hematocrit 41.3 % (39.0-53.0) Mean Corpuscular Volume 88 fL (79-100) Mean Corpuscular Hemoglobin 30 pg (25-35) Mean Corpuscular Hemoglobin Concent 34 g/dL (31-37) Red Cell Distribution Width 13.5 % (11.5-14.5) Platelet Count 293 x10^3/uL (140-400) Neutrophils (%) (Auto) 74 % (31-73) Lymphocytes (%) (Auto) 16 % (24-48) Monocytes (%) (Auto) 7 % (0-9) Eosinophils (%) (Auto) 2 % (0-3) Basophils (%) (Auto) 1 % (0-3) Neutrophils # (Auto) 8.7 x10^3/uL (1.8-7.7) Lymphocytes # (Auto) 1.9 x10^3/uL (1.0-4.8) Monocytes # (Auto) 0.8 x10^3/uL (0.0-1.1) Eosinophils # (Auto) 0.3 x10^3/uL (0.0-0.7) Basophils # (Auto) 0.1 x10^3/uL (0.0-0.2) Sodium Level 134 mmol/L (136-145) Potassium Level 4.8 mmol/L (3.5-5.1) Chloride Level 97 mmol/L (98-107) Carbon Dioxide Level 26 mmol/L (21-32) Anion Gap 11 (6-14) Blood Urea Nitrogen 28 mg/dL (8-26) Creatinine 1.6 mg/dL (0.7-1.3) Estimated GFR (Cockcroft-Gault) 43.6 BUN/Creatinine Ratio 18 (6-20) Glucose Level 89 mg/dL (70-99) Calcium Level 9.4 mg/dL (8.5-10.1) Magnesium Level 2.4 mg/dL (1.8-2.4) Total Bilirubin 0.3 mg/dL (0.2-1.0) Aspartate Amino Transf (AST/SGOT) 15 U/L (15-37) Alanine Aminotransferase (ALT/SGPT) 24 U/L (16-63) Alkaline Phosphatase 82 U/L (46-116) Troponin I High Sensitivity 6 ng/L (4-75) Total Protein 8.1 g/dL (6.4-8.2) Albumin 3.6 g/dL (3.4-5.0) Albumin/Globulin Ratio 0.8 (1.0-1.7) Lipase 193 U/L (73-393) Lactic Acid Level 1.4 mmol/L (0.4-2.0) Glucose (Fingerstick) 68 mg/dL (70-99) Test 07/14/21 17:46 07/14/21 20:38 07/15/21 04:40 Glucose (Fingerstick) 70 mg/dL (70-99) 152 mg/dL (70-99) White Blood Count 8.4 x10^3/uL (4.0-11.0) Red Blood Count 4.12 x10^6/uL (4.30-5.70) Hemoglobin 12.2 g/dL (13.0-17.5) Hematocrit 36.6 % (39.0-53.0) Mean Corpuscular Volume 89 fL (79-100) Mean Corpuscular Hemoglobin 30 pg (25-35) Mean Corpuscular Hemoglobin Concent 33 g/dL (31-37) Red Cell Distribution Width 13.5 % (11.5-14.5) Platelet Count 232 x10^3/uL (140-400) Neutrophils (%) (Auto) 60 % (31-73) Lymphocytes (%) (Auto) 28 % (24-48) Monocytes (%) (Auto) 8 % (0-9) Eosinophils (%) (Auto) 4 % (0-3) Basophils (%) (Auto) 1 % (0-3) Neutrophils # (Auto) 5.0 x10^3/uL (1.8-7.7) Lymphocytes # (Auto) 2.3 x10^3/uL (1.0-4.8) Monocytes # (Auto) 0.6 x10^3/uL (0.0-1.1) Eosinophils # (Auto) 0.3 x10^3/uL (0.0-0.7) Basophils # (Auto) 0.1 x10^3/uL (0.0-0.2) Sodium Level 139 mmol/L (136-145) Potassium Level 4.0 mmol/L (3.5-5.1) Chloride Level 103 mmol/L (98-107) Carbon Dioxide Level 28 mmol/L (21-32) Anion Gap 8 (6-14) Blood Urea Nitrogen 16 mg/dL (8-26) Creatinine 1.2 mg/dL (0.7-1.3) Estimated GFR (Cockcroft-Gault) 60.8 BUN/Creatinine Ratio 13 (6-20) Glucose Level 87 mg/dL (70-99) Calcium Level 8.7 mg/dL (8.5-10.1) Total Bilirubin 0.4 mg/dL (0.2-1.0) Aspartate Amino Transf (AST/SGOT) 11 U/L (15-37) Alanine Aminotransferase (ALT/SGPT) 18 U/L (16-63) Alkaline Phosphatase 65 U/L (46-116) Total Protein 6.6 g/dL (6.4-8.2) Albumin 2.9 g/dL (3.4-5.0) Albumin/Globulin Ratio 0.8 (1.0-1.7) Assessment and Plan Assessmemt and Plan Problems Medical Problems: (1) Diverticulitis of sigmoid colon Status: Acute (2) Intractable abdominal pain Status: Acute Intractable abdominal pain -seems to be due to acute diverticulitis. IV Dilaudid. Placed on IV Cipro and Flagyl liquid diet advance as tolerated. Consult GI. SIRS/sepsis - with Leukocytosis -likely due to acute diverticulitis Sigmoid diverticulitis - on CT abdomen. treatment as above, admitted for pain control DEBORAH - likely vasomotor nephropathy, though he has some underlying CKD likely GERD - on H2 jose luis Esophageal strictures - reports past esophageal dilations at the [facility] DM2 -hold metformin for DEBORAH. On sliding scale continue Jardiance. We will add Teradestiny thinks he is on Januvia Obesity, BMI 33.3 -healthy lifestyle modification Insomnia -ambien prn COPD - with asthma, counseled on cutting back on vape and prn albuterol Dyslipidemia - statin HTN - on lisinopril/hctz, hold for DEBORAH Smoker - vapes now FEN - Liquid diet PPX - heparin FULL CODE Dispo - inpatient DPOA is Sarai Penaloza, spouse Comment Review of Relevant I have reviewed the following items mekhi (where applicable) has been applied. Medications: Current Medications Medications (Trade) Dose Ordered Sig/Adilson Route PRN Reason Start Time Stop Time Status Last Admin Dose Admin Morphine Sulfate (Morphine Sulfate) 4 mg 1X ONCE IVP 07/14/21 13:45 07/14/21 13:46 DC 07/14/21 13:50 Sodium Chloride 1,000 ml @ 1,000 mls/hr 1X ONCE IV 07/14/21 13:45 07/14/21 14:44 DC 07/14/21 13:50 Ondansetron HCl (Zofran) 4 mg 1X ONCE IVP 07/14/21 13:45 07/14/21 13:46 DC 07/14/21 13:50 Iohexol (Omnipaque 300 Mg/ml) 75 ml 1X ONCE IV 07/14/21 14:30 07/14/21 14:31 DC 07/14/21 14:44 Info (CONTRAST GIVEN -- Rx MONITORING) 1 each PRN DAILY PRN MC SEE COMMENTS 07/14/21 14:15 07/16/21 14:14 07/14/21 14:44 Morphine Sulfate (Morphine Sulfate) 4 mg 1X ONCE IVP 07/14/21 14:30 07/14/21 14:31 DC 07/14/21 14:25 Metronidazole 100 ml @ 100 mls/hr 1X ONCE IV 07/14/21 15:30 07/14/21 16:29 DC 07/14/21 15:53 Ciprofloxacin/ Dextrose 200 ml @ 200 mls/hr 1X ONCE IV 07/14/21 15:30 07/14/21 16:29 DC 07/14/21 15:54 Hydromorphone HCl (Dilaudid) 1 mg 1X ONCE IVP 07/14/21 16:30 07/14/21 16:31 DC 07/14/21 16:45 Sodium Chloride 1,000 ml @ 1,000 mls/hr 1X ONCE IV 07/14/21 16:30 07/14/21 17:29 DC 07/14/21 16:10 Heparin Sodium (Porcine) (Heparin Sodium) 5,000 unit Q8HRS SQ 07/14/21 22:00 07/15/21 06:04 Aspirin (Ecotrin) 81 mg DAILY PO 07/15/21 09:00 07/15/21 09:00 Empaglifozin (Jardiance) 12.5 mg DAILY PO 07/15/21 09:00 07/15/21 09:00 Trazodone HCl (Desyrel) 200 mg QHS PO 07/14/21 21:00 07/14/21 21:53 Bupropion HCl (Wellbutrin Xl) 300 mg DAILY PO 07/15/21 09:00 07/15/21 09:30 Buspirone HCl (Buspar) 15 mg BID PO 07/14/21 21:00 07/15/21 09:29 Duloxetine HCl (Cymbalta) 60 mg DAILY PO 07/15/21 09:00 07/15/21 09:29 Insulin Glargine (Lantus Syringe) 35 unit BID SQ 07/14/21 21:00 07/15/21 09:33 Multivitamins (Thera M Plus) 1 tab DAILY PO 07/15/21 09:00 07/15/21 09:00 Zolpidem Tartrate (Ambien) 5 mg PRN QHS PRN PO INSOMNIA, MAY REPEAT X1 07/14/21 19:15 07/14/21 23:31 Ciprofloxacin/ Dextrose 100 ml @ 100 mls/hr Q12HR IV 07/15/21 09:00 07/17/21 08:59 07/15/21 09:28 Metronidazole 100 ml @ 100 mls/hr Q8HRS IV 07/14/21 22:00 07/17/21 21:59 07/15/21 06:00 Psyllium Hydrophilic Mucilloid (Metamucil Fiber Packet) 1 pkt QHS PO 07/14/21 21:00 07/14/21 21:54 Pantoprazole Sodium (Protonix) 40 mg DAILYAC PO 07/15/21 09:00 07/15/21 09:57 DC 07/15/21 09:29 Justifications for Admission Other Justification TRINITY WATTS III DO July 15, 2021 11:11
[2021-07-15] MEDS: HYDROmorphone 2 MG/ML INJ. IVP PRN ×3 (12:17→20:47)
[2021-07-15] MEDS: CHOLECALCIFEROL (VITAMIN D3) 1,000 UNIT TABLET PO SCH (12:25)
[2021-07-15 15:00] VITALS: BP 86/44
[2021-07-15] MEDS: PANTOPRAZOLE 40 MG TABLET.DR. PO SCH (18:01)
[2021-07-15 19:25] VITALS: BP 102/65
[2021-07-15] MEDS: LACTOBACILLUS RHAMNOSUS GG 1 CAPSULE. PO SCH (20:44)
[2021-07-15] MEDS: PSYLLIUM HUSK (SUGAR FREE) 1 PKT PACKET PO SCH (20:45)
[2021-07-15] MEDS: traZODone 100 MG TABLET. PO SCH (20:58)
[2021-07-15 23:17] VITALS: BP 108/76
[2021-07-16] MEDS: HYDROmorphone 2 MG/ML INJ. IVP PRN ×3 (00:10→16:07)
[2021-07-16] MEDS: ZOLPIDEM 5 MG TABLET. PO PRN (00:10)
[2021-07-16 03:19] VITALS: BP 91/50
[2021-07-16] MEDS: PANTOPRAZOLE 40 MG TABLET.DR. PO SCH (06:03)
[2021-07-16] MEDS: HEPARIN for SUB-Q USE 5,000 UNIT/ML VIAL. SQ SCH ×2 (06:09→14:00)
[2021-07-16 07:00] VITALS: BP 122/72
[2021-07-16] MEDS: MULTIVITAMIN with MINERAL TABLET. PO SCH (08:44)
[2021-07-16] MEDS: LACTOBACILLUS RHAMNOSUS GG 1 CAPSULE. PO SCH (08:44)
[2021-07-16] MEDS: CHOLECALCIFEROL (VITAMIN D3) 1,000 UNIT TABLET PO SCH (08:44)
[2021-07-16] MEDS: busPIRone 5 MG TABLET. PO SCH (08:45)
[2021-07-16] MEDS: CARVEDILOL 12.5 MG TABLET. PO SCH (08:45)
[2021-07-16] MEDS: ASPIRIN ENTERIC COATED 81 MG TABLET.DR. PO SCH (08:46)
[2021-07-16] MEDS: buPROPion XL 150 MG TAB.ER.24H. PO SCH (08:46)
[2021-07-16] MEDS: DULoxetine HCL 30 MG CAPSULE.DR PO SCH (08:46)
[2021-07-16] MEDS: EMPAGLIFLOZIN 25 MG TABLET. PO SCH (08:49)
[2021-07-16] MEDS: CIPROFLOXACIN 200MG PREMIX 100 ML IV SCH (08:56)
[2021-07-16] MEDS: INSULIN LISPRO 300 UNITS/3 ML VIAL. SQ SCH ×2 (09:02→11:28)
[2021-07-16] MEDS: INSULIN GLARGINE SYRINGE. SQ SCH (09:03)
--- NOTE | 2021-07-16 09:58 | PDOC ---
[employer] PROGRESS NOTE Date of Service DOS: DATE: 07/16/21 TIME: 09:56 Chief Complaint Chief Complaint Intractable abdominal pain SIRS Sepsis Sigmoid diverticulitis DEBORAH GERD Esophageal strictures Diabetes Obesity Insomnia COPD Hyperlipidemia Hypertension Tobacco/vape use History of Present Illness History of Present Illness 07/16/2021 Patient seen and examined Discussed with RN Discussed with case management Discussed with his Sarai Chart reviewed Patient tolerated cream of wheat We will advance diet and try to discharge this afternoon 07/15/2021 Patient seen and examined Discussed with RN Chart reviewed He still has abdominal distention and pain I called the pharmacy he is indeed on Cipro and metronidazole I also ordered Protonix Discussed with GI nurse practitioner Vitals/I&O Vitals/I&O: Vital Signs Date Time Temp Pulse Resp B/P (MAP) Pulse Ox O2 Delivery O2 Flow Rate FiO2 07/16/21 08:56 20 07/16/21 08:45 102 122/72 07/16/21 07:00 98.6 92 Room Air 98.6 07/16/21 03:19 2.0 I & O 07/15/21 07/15/21 07/16/21 15:00 23:00 07:00 Intake Total 640 ml 480 ml Balance 640 ml 480 ml Physical Exam General: Alert, Oriented X3, Cooperative, moderate distress Lungs: Clear Abdomen: Normal bowel sounds, Soft, No hepatosplenomegaly, No masses, Other (Left lower quadrant pain) Extremities: No clubbing, No cyanosis, No edema, Normal pulses, No tenderness/swelling Skin: No rashes, No breakdown, No significant lesion Labs Labs: Laboratory Tests Test 07/15/21 11:54 07/15/21 16:48 07/15/21 21:00 07/16/21 07:38 Glucose (Fingerstick) 163 mg/dL (70-99) 107 mg/dL (70-99) 164 mg/dL (70-99) 183 mg/dL (70-99) Assessment and Plan Assessmemt and Plan Problems Medical Problems: (1) Diverticulitis of sigmoid colon Status: Acute (2) Intractable abdominal pain Status: Acute Advance diet and discharge this afternoon see dictation Comment Review of Relevant I have reviewed the following items mekhi (where applicable) has been applied. Medications: Current Medications Medications (Trade) Dose Ordered Sig/Adilson Route PRN Reason Start Time Stop Time Status Last Admin Dose Admin Pantoprazole Sodium (Protonix) 40 mg BIDAC PO 07/15/21 16:30 07/16/21 06:03 Lactobacillus Rhamnosus (Culturelle) 1 cap BID PO 07/15/21 21:00 07/16/21 08:44 Justifications for Admission Other Justification TRINITY WATTS III DO July 16, 2021 09:58
[2021-07-16] MEDS ORDERED: PANT40TA77 PO (10:02)
[2021-07-16] MEDS ORDERED: METR375C PO (10:02)
[2021-07-16] MEDS ORDERED: CIPR500T2 PO (10:02)
--- NOTE | 2021-07-16 10:09 | PDOC ---
Date of Service: DATE: 07/16/21 TIME: 10:04 Subjective: Subjective: Spit up a little saliva after gagging this morning, then tolerated full liquid breakfast. Intermittently still has hiccups. Abdominal pain better but chronic neck pain was worse with rain/change in weather last night. Would like to go home soon. Passing gas, no stool in a couple days. Objective: Vital Signs: Vital Signs Date Time Temp Pulse Resp B/P (MAP) Pulse Ox O2 Delivery O2 Flow Rate FiO2 07/16/21 08:56 20 07/16/21 08:45 102 122/72 07/16/21 07:00 98.6 92 Room Air 98.6 07/16/21 03:19 2.0 Labs: Laboratory Tests Test 07/15/21 11:54 07/15/21 16:48 07/15/21 21:00 07/16/21 07:38 Glucose (Fingerstick) 163 mg/dL (70-99) 107 mg/dL (70-99) 164 mg/dL (70-99) 183 mg/dL (70-99) PE: GEN: NAD LUNGS: CTAB HEART: RRR ABD: large/round (stable), non-tender, quiet BS NEURO/PSYCH: A & O 3 A/P: Recurrent diverticulitis GERD, hiccups Nausea/retching x 1 today before breakfast -- If continues to tolerate diet, okay to DC later today on PO atbx. Can use Miralax at home (and will order PRN here - hold on Metamucil for now). Consider surgery opinion as outpt. Justicifation of Admission Dx: Justifications for Admission: Justification of Admission Dx: Yes EDSON MICHEL July 16, 2021 10:09
[2021-07-16] MEDS ORDERED: POLYETHYLENE GLYCOL 3350 17 GM PACKET. PO PRN (10:15)
[2021-07-16 11:00] VITALS: BP 140/89
[2021-07-16 15:00] VITALS: BP 90/59
--- NOTE | 2021-07-16 16:18 | NUR ---
DR WATTS NOTIFIED OF DISCREPANCY REGARDING DOSAGE IN [place]. REVIEWED DISCHARGE INSTRUCTIONS WITH HIM VERBALIZED UNDERSTANDING.
--- NOTE | 2021-07-17 08:56 | DS ---
DATE OF DISCHARGE: 07/16/2021 ADMISSION DIAGNOSIS: Diverticulitis. DISCHARGE DIAGNOSES: Resolving diverticulitis, gastroesophageal reflux disease, esophageal stricture, diabetes, insomnia, chronic obstructive pulmonary disease, hyperlipidemia, hypertension, tobacco use and vape use. CONSULTS: GI. PROCEDURES: None. HOSPITAL COURSE: The patient is a pleasant middle-aged male who presented with diverticulitis. We admitted him, gave him IV Cipro and IV Flagyl. We consulted GI. Yesterday, I saw and examined him. He is doing well, wanted to go home, will be discharged home. DISPOSITION: Home. ACTIVITY: As tolerated. DIET: Low sodium. DISCHARGE MEDICATIONS: Please see the [facility]. Cipro 500 b.i.d., metronidazole 500 t.i.d., Protonix 40 a day, aspirin 81 a day, Wellbutrin XL 300 a day, carvedilol 12.5 b.i.d., vitamin D, cyclobenzaprine 10 q.i.d. p.r.n., Cymbalta 60 a day, Jardiance 12.5 daily, Levemir insulin 35 units b.i.d., lisinopril/hydrochlorothiazide 20/12.5 one a day, metformin 500 q.a.m. and 1000 at bedtime, mirtazapine 1 at bedtime, vitamins, Ultram 50 q.i.d., trazodone 200 at bedtime and Ambien 10 at bedtime. Total time 33 minutes. [facility] [place]: SAM/smitha TID: [id number]
== END 2021-07-16 16:00 | disposition home or self-care (01) | DRG 872 ==
LOC: ER 13:00 → 4 NORTH 16:43
PROVIDERS: ADMIT Internal Medicine; ATTEND Internal Medicine
DX: A41.9 Sepsis, unspecified organism (principal); K57.32 Diverticulitis of large intestine without perforation or abscess without bleeding; N17.9 Acute kidney failure, unspecified; E11.22 Type 2 diabetes mellitus with diabetic chronic kidney disease; E11.42 Type 2 diabetes mellitus with diabetic polyneuropathy; E66.9 Obesity, unspecified; E78.00 Pure hypercholesterolemia, unspecified; E78.5 Hyperlipidemia, unspecified; F17.210 Nicotine dependence, cigarettes, uncomplicated; G25.0 Essential tremor; G47.00 Insomnia, unspecified; G89.29 Other chronic pain; I12.9 Hypertensive chronic kidney disease with stage 1 through stage 4 chronic kidney disease, or unspecified chronic kidney disease; J44.9 Chronic obstructive pulmonary disease, unspecified; K21.9 Gastro-esophageal reflux disease without esophagitis; K22.2 Esophageal obstruction; N18.9 Chronic kidney disease, unspecified; N20.0 Calculus of kidney; Z68.33 Body mass index [BMI] 33.0-33.9, adult; Z79.899 Other long term (current) drug therapy; Z82.49 Family history of ischemic heart disease and other diseases of the circulatory system; Z98.1 Arthrodesis status; F32.A Depression, unspecified; F41.9 Anxiety disorder, unspecified; Z88.8 Allergy status to other drugs, medicaments and biological substances
CPT/HCPCS: 36415; 74177; 80053; 81001; 82962; 83605; 83690; 83735; 84484; 85025; 93005; 96361; 96365; 96368; 96375; 96376; J0744; J1170; J1644; J1815; J2270; J2405; J3490; J7030; Q9967; 99285-25; G0378